=== PATIENT | male | born 1940 | race Asian ===

== ENCOUNTER 2018-01-15 17:33 | Inpatient (IN) | payer MEDICARE, MEDICAID ==
[~2018-01-15] VITALS: Ht 165.1 cm; Wt 52.2 kg
[2018-01-15 17:35] VITALS: BP 124/74
[2018-01-15] MEDS ORDERED: dilTIAZem HCl 50mg/10ml Inj IVP ONE (17:43)
[2018-01-15] MEDS ORDERED: dilTIAZem HCl 25mg/5ml Inj IVP ONE ×2 (17:45→19:45)
--- NOTE | 2018-01-15 18:07 | Diagnostic Imaging Report ---
EXAM: XR Chest, 1 View CLINICAL HISTORY: SOB TECHNIQUE: Frontal view of the chest. COMPARISON: No relevant prior studies available. FINDINGS: Lungs: See below. Pleural space: Blunting of the costophrenic angles with mild increased hazy opacities at the lung bases suggestive of bilateral pleural effusions versus pleural thickening with mild adjacent atelectasis versus infiltrate. No pneumothorax. Heart: Prominence of the cardiac silhouette. Mediastinum: Unremarkable. Bones/joints: Degenerative changes of the acromioclavicular joints. Degenerative changes of the thoracolumbar spine. IMPRESSION: 1. Prominence of the cardiac silhouette. 2. Blunting of the costophrenic angles with mild increased hazy opacities at the lung bases suggestive of bilateral pleural effusions versus pleural thickening with mild adjacent atelectasis versus infiltrate.
[2018-01-15] MEDS ORDERED: TAMSULOSIN HCL0.4 MG ORAL (18:23)
[2018-01-15] MEDS ORDERED: COZAAR25 MG ORAL (18:23)
[2018-01-15] MEDS ORDERED: METOPROLOL SUCC25 MG ORAL (18:23)
[2018-01-15 18:25] LABS: BASOPHILS % (AUTO) 1.1 % (0.0-2.0); EOSINOPHILS % (AUTO) 4.6 % (0.0-3.0); HEMATOCRIT 37.4 % (42.0-52.0); HEMOGLOBIN 12.7 G/DL (14.2-18.0); LYMPHOCYTES % (AUTO) 17.3 % (20.0-45.0); MEAN CORPUSCULAR VOLUME 89 FL (80-99); MONOCYTES % (AUTO) 12.3 % (1.0-10.0); NEUTROPHILS % (AUTO) 64.6 % (45.0-75.0); PLATELET COUNT 138 K/UL (150-450); RED BLOOD COUNT 4.18 M/UL (4.70-6.10); RED CELL DISTRIBUTION WIDTH 12.3 % (11.6-14.8); WHITE BLOOD COUNT 6.8 K/UL (4.8-10.8)
[2018-01-15 18:29] LABS: ANION GAP 11 mmol/L (5-15); BLOOD UREA NITROGEN 28 mg/dL (7-18); CALCIUM 8.8 MG/DL (8.5-10.1); CARBON DIOXIDE 23 MMOL/L (21-32); CHLORIDE 105 MMOL/L (98-107); CREATININE 1.4 MG/DL (0.55-1.30); POTASSIUM 4.1 MMOL/L (3.5-5.1); SODIUM 139 MMOL/L (136-145)
[2018-01-15 18:45] LABS: ALANINE AMINOTRANSFERASE 35 U/L (12-78); ALBUMIN 3.4 G/DL (3.4-5.0); ALKALINE PHOSPHATASE 68 U/L (46-116); ASPARTATE AMINO TRANSFERASE 33 U/L (15-37); BILIRUBIN,TOTAL 0.5 MG/DL (0.2-1.0); CKMB 3.2 NG/ML (0.0-3.6); CREATINE KINASE 132 U/L (26-308)
[2018-01-15 19:35] VITALS: BP 110/86
[2018-01-15 20:39] LABS: APPEARANCE,URINE CLEAR; BILIRUBIN, URINE NEGATIVE (NEGATIVE); GLUCOSE, URINE (UA) NEGATIVE (NEGATIVE); KETONES,URINE 1+ (NEGATIVE); LEUKOCYTE ESTERASE ,URINE 1+ (NEGATIVE); NITRITE,URINE NEGATIVE (NEGATIVE); PH,URINE 5 (4.5-8.0); PROTEIN,URINE 1+ (NEGATIVE); UROBILINOGEN,URINE NORMAL MG/DL (0.0-1.0)
[2018-01-15 20:44] LABS: COLOR,URINE YELLOW
[2018-01-15] MEDS ORDERED: Enoxaparin 40mg Inj SUBQ SCH (20:45)
[2018-01-15 21:42] VITALS: BP 110/78
[2018-01-15 22:21] VITALS: BP 107/64
--- NOTE | 2018-01-15 23:54 | Emergency Room Report ---
History of Present Illness General Chief Complaint: Dyspnea/Respdistress Source: Patient Present Illness HPI Patient is a 77-year-old male brought in by EMS after increased shortness of breath. Patient was noted to have a rapid atrial fibrillation by EMS. Patient did not have known prior history of atrial fibrillation. The patient noted have increased shortness of breath. The patient prior history of hypertension. He had not been having any vomiting or diarrhea. He reports having some chest discomfort. Allergies: Coded Allergies: No Known Allergies (Unverified , 01/15/18) Patient History Past Medical History: see triage record Reviewed Nursing Documentation: PMH: Agreed; PSxH: Agreed Nursing Documentation-PMH Past Medical History: No History, Except For Hx Cardiac Problems: Yes Hx Hypertension: Yes Review of Systems All Other Systems: negative except mentioned in HPI Physical Exam Vital Signs Date Time Temp Pulse Resp B/P (MAP) Pulse Ox O2 Delivery O2 Flow Rate FiO2 01/15/18 17:26 98.8 116 18 123/74 99 Room Air 98.8 01/15/18 19:35 3.0 Sp02 EP Interpretation: reviewed, normal General Appearance: normal inspection, alert Head: atraumatic ENT: normal ENT inspection, hearing grossly normal, normal voice Neck: normal inspection, full range of motion, supple, no bony tend Respiratory: normal inspection, no respiratory distress, no retraction Cardiovascular #1: no edema, tachycardia Gastrointestinal: normal inspection, normal bowel sounds, non tender, soft, no guarding, no hernia Genitourinary: no CVA tenderness Musculoskeletal: normal inspection, back normal, normal range of motion Neurologic: normal inspection, alert, responsive, speech normal Psychiatric: normal inspection, judgement/insight normal, mood/affect normal Skin: normal color, no rash, other - excoriations Medical Decision Making Diagnostic Impression: Primary Impression: Dyspnea Additional Impression: Atrial fibrillation ER Course Patient presented for shortness of breath.Differential included but was not limited to anemia, pneumonia, pneumothorax, myocardial infarction, pericardial effusion, congestive heart failure, acidosis. Because of complexity of patient' s case laboratory testing and imaging studies were ordered.the patient was given IV Cardizem for rate. Patient was discussed with Dr. Matt Ibanez for panel physician. Labs Test 01/15/18 17:30 01/15/18 19:40 01/15/18 23:26 White Blood Count 6.8 K/UL (4.8-10.8) Red Blood Count 4.18 M/UL (4.70-6.10) Hemoglobin 12.7 G/DL (14.2-18.0) Hematocrit 37.4 % (42.0-52.0) Mean Corpuscular Volume 89 FL (80-99) Mean Corpuscular Hemoglobin 30.4 PG (27.0-31.0) Mean Corpuscular Hemoglobin Concent 34.0 G/DL (32.0-36.0) Red Cell Distribution Width 12.3 % (11.6-14.8) Platelet Count 138 K/UL (150-450) Mean Platelet Volume 8.9 FL (6.5-10.1) Neutrophils (%) (Auto) 64.6 % (45.0-75.0) Lymphocytes (%) (Auto) 17.3 % (20.0-45.0) Monocytes (%) (Auto) 12.3 % (1.0-10.0) Eosinophils (%) (Auto) 4.6 % (0.0-3.0) Basophils (%) (Auto) 1.1 % (0.0-2.0) Prothrombin Time 10.7 SEC (9.30-11.50) Prothromb Time International Ratio 1.0 (0.9-1.1) Activated Partial Thromboplast Time 27 SEC (23-33) D-Dimer 0.44 mg/L FEU (0.00-0.49) Sodium Level 139 MMOL/L (136-145) Potassium Level 4.1 MMOL/L (3.5-5.1) Chloride Level 105 MMOL/L (98-107) Carbon Dioxide Level 23 MMOL/L (21-32) Anion Gap 11 mmol/L (5-15) Blood Urea Nitrogen 28 mg/dL (7-18) Creatinine 1.4 MG/DL (0.55-1.30) Estimat Glomerular Filtration Rate mL/min (>60) Glucose Level 144 MG/DL (74-106) Calcium Level 8.8 MG/DL (8.5-10.1) Total Bilirubin 0.5 MG/DL (0.2-1.0) Aspartate Amino Transf (AST/SGOT) 33 U/L (15-37) Alanine Aminotransferase (ALT/SGPT) 35 U/L (12-78) Alkaline Phosphatase 68 U/L (46-116) Total Creatine Kinase 132 U/L (26-308) Creatine Kinase MB 3.2 NG/ML (0.0-3.6) Creatine Kinase MB Relative Index 2.4 Pro-B-Type Natriuretic Peptide 6276 pg/mL (0-125) Total Protein 6.7 G/DL (6.4-8.2) Albumin 3.4 G/DL (3.4-5.0) Globulin 3.3 g/dL Albumin/Globulin Ratio 1.0 (1.0-2.7) Urine Color Yellow Urine Appearance Clear Urine pH 5 (4.5-8.0) Urine Specific [place] 1.025 (1.005-1.035) Urine Protein 1+ (NEGATIVE) Urine Glucose (UA) Negative (NEGATIVE) Urine Ketones 1+ (NEGATIVE) Urine Blood 1+ (NEGATIVE) Urine Nitrite Negative (NEGATIVE) Urine Bilirubin Negative (NEGATIVE) Urine Urobilinogen Normal MG/DL (0.0-1.0) Urine Leukocyte Esterase 1+ (NEGATIVE) Urine RBC 2-4 /HPF (0 - 0) Urine WBC 2-4 /HPF (0 - 0) Urine Squamous Epithelial Cells None /LPF (NONE/OCC) Urine Amorphous Sediment Few /LPF (NONE) Urine Bacteria Few /HPF (NONE) EKG Diagnostic Results Rate: tachycardiac Rhythm: other - afib Rhythm Strip Diag. Results EP Interpretation: yes Rhythm: no PVC's, no ectopy Last Vital Signs Date Time Temp Pulse Resp B/P (MAP) Pulse Ox O2 Delivery O2 Flow Rate FiO2 01/15/18 22:00 Nasal Cannula 2.0 01/15/18 21:42 100 24 110/78 99 01/15/18 21:40 98.7 98.7 Status: unchanged Disposition: ADMITTED INPATIENT Condition: Serious Referrals: NON PHYSICIAN (PCP) Jarod Perez MD Jan 15, 2018 23:54
[2018-01-16] MEDS ORDERED: ASPIRIN-LOW81 MG ORAL (03:46)
[2018-01-16] MEDS ORDERED: FENOFIBRATE40 MG PO (03:46)
[2018-01-16] MEDS ORDERED: PROSCAR5 MG ORAL (03:46)
[2018-01-16 04:00] VITALS: BP 115/74
[2018-01-16 04:40] LABS: BASOPHILS % (AUTO) 1.1 % (0.0-2.0); EOSINOPHILS % (AUTO) 7.7 % (0.0-3.0); HEMATOCRIT 35.2 % (42.0-52.0); HEMOGLOBIN 11.8 G/DL (14.2-18.0); LYMPHOCYTES % (AUTO) 23.2 % (20.0-45.0); MEAN CORPUSCULAR VOLUME 88 FL (80-99); MONOCYTES % (AUTO) 14.7 % (1.0-10.0); NEUTROPHILS % (AUTO) 53.3 % (45.0-75.0); PLATELET COUNT 140 K/UL (150-450); RED CELL DISTRIBUTION WIDTH 12.3 % (11.6-14.8); WHITE BLOOD COUNT 5.7 K/UL (4.8-10.8)
--- NOTE | 2018-01-16 04:45 | History and Physical Report ---
DATE OF ADMISSION: 01/15/2018 REASON FOR ADMISSION: 1. Shortness of breath. 2. New-onset atrial fibrillation. HISTORY OF PRESENT ILLNESS: The patient is a 77-year-old gentleman, who presented to emergency room for further evaluation and care of shortness of breath and not feeling well over the past 3 days. In the emergency room, the patient was noted to be in atrial fibrillation with rapid ventricular rate, new onset. The patient had not experienced this in the past along with elevated creatinine of 1.4. The patient says his only other medical condition prior to this was hypertension. No current chest pain, nausea, vomiting, and/or diarrhea. ALLERGIES: No known drug allergies. PAST MEDICAL HISTORY: 1. BPH. 2. Hypertension. SOCIAL HISTORY: The patient denies any current tobacco, alcohol, or illicit drug use. PAST SURGICAL HISTORY: Noncontributory. LABORATORY DATA: Dated 01/15/2018, sodium 139, potassium 4.1, BUN 28, creatinine 1.4, and calcium 8.8. LFTs within normal range. Troponin 0.204. Hemoglobin 12.7, white cell count 6.8, and platelet count 138,000. PHYSICAL EXAMINATION: VITAL SIGNS: Blood pressure 117/64, heart rate 114, respiratory rate 28, and temperature 98.7 degrees. GENERAL: The patient is awake, alert, not otherwise in distress. HEENT: Extraocular muscles intact. No lymphadenopathy noted. CARDIOVASCULAR: S1 and S2. Irregularly irregular. Tachycardic. PULMONARY: Clear to auscultation bilaterally. No rales, rhonchi, or wheezes. ABDOMEN: Nondistended and nontender with good bowel sounds. EXTREMITIES: No edema noted. ASSESSMENT AND PLAN: 1. Atrial fibrillation with rapid ventricular rate. New onset in nature. Positive with underlying shortness of breath. Both Cardiology and Pulmonary have been consulted for evaluation and management tonight for anticoagulation. Lasix therapy p.r.n. to assist with shortness of breath. However, at this time, rapid ventricular rate most likely underlying cause of his shortness of breath. New-onset atrial fibrillation. Etiology will be deferred to Cardiology. His heart rate has been much improved post Cardizem. We will defer further management to Dr. Ayoub of Cardiology. 2. Hypertension. Stable. We will continue metoprolol succinate along with losartan. 3. Acute versus chronic kidney disease. Creatinine 1.4. Most likely secondary to component of cardiorenal due to new-onset AFib with RVR. At this time, monitor carefully and recheck a.m. labs. 4. DVT prophylaxis. This is new-onset atrial fibrillation, which will require anticoagulation. We will defer full anticoagulation and management per Cardiology. Matt Ibanez MD DR: KAROLINE JOB#: [id number] CC:
[2018-01-16 04:46] LABS: ANION GAP 8 mmol/L (5-15); BLOOD UREA NITROGEN 25 mg/dL (7-18); CALCIUM 8.5 MG/DL (8.5-10.1); CARBON DIOXIDE 26 MMOL/L (21-32); CHLORIDE 107 MMOL/L (98-107); CREATININE 1.4 MG/DL (0.55-1.30); POTASSIUM 3.5 MMOL/L (3.5-5.1); SODIUM 141 MMOL/L (136-145)
--- NOTE | 2018-01-16 07:49 | Nephrology Progress Note ---
Assessment/Plan Assessment/Plan A/P 1) AFib with RVR- s/p cardizem bolus - on Lopressor now - in NSR - cardiology to decide on anticoagulation 2) NSTEMI- elevated trop I - with new onset AFib - per cardiology 3) SOB- resolved as heart rate within normal limits 4) HTN- lopressor and losartan 5) JOSLYN vs CKD- Cr 1.4 - stable. Renal US pending Subjective Date patient seen: Jan 16, 2018 Time patient seen: 07:45 ROS Limited/Unobtainable: No Allergies: Coded Allergies: No Known Allergies (Unverified , 01/15/18) All Systems: reviewed and negative except above Subjective Patient breathing better. Now in NSR Objective Last 24 Hour Vital Signs Date Time Temp Pulse Resp B/P (MAP) Pulse Ox O2 Delivery O2 Flow Rate FiO2 01/16/18 04:00 97.8 89 20 115/74 (88) 100 97.8 89 01/16/18 04:00 Nasal Cannula 2.0 01/16/18 04:00 80 01/16/18 00:50 83 01/16/18 00:00 Nasal Cannula 2.0 01/15/18 22:21 97.8 111 20 107/64 (78) 100 97.8 111 01/15/18 22:21 111 01/15/18 22:00 Nasal Cannula 2.0 01/15/18 21:42 100 24 110/78 99 Nasal Cannula 3.0 01/15/18 21:40 98.7 104 28 117/64 99 Nasal Cannula 3.0 98.7 01/15/18 19:54 114 117/64 01/15/18 19:35 98.7 104 28 110/86 99 Nasal Cannula 3.0 98.7 01/15/18 17:44 156 119/60 01/15/18 17:35 98.8 73 18 124/74 99 Room Air 98.8 01/15/18 17:35 154 20 Room Air 01/15/18 17:26 98.8 116 18 123/74 99 Room Air 98.8 Intake and Output 01/15/18 01/16/18 19:00 07:00 Intake Total 300 ml Balance 300 ml Intake Oral 300 ml # Voids 1 Laboratory Tests 01/15/18 17:30: White Blood Count 6.8, Red Blood Count 4.18L, Hemoglobin 12.7L, Hematocrit 37.4L , Mean Corpuscular Volume 89, Mean Corpuscular Hemoglobin 30.4, Mean Corpuscular Hemoglobin Concent 34.0, Red Cell Distribution Width 12.3, Platelet Count 138L, Mean Platelet Volume 8.9, Neutrophils (%) (Auto) 64.6, Lymphocytes ( %) (Auto) 17.3L, Monocytes (%) (Auto) 12.3H, Eosinophils (%) (Auto) 4.6H, Basophils (%) (Auto) 1.1, Prothrombin Time 10.7, Prothromb Time International Ratio 1.0, Activated Partial Thromboplast Time 27, D-Dimer 0.44, Sodium Level 139, Potassium Level 4.1, Chloride Level 105, Carbon Dioxide Level 23, Anion Gap 11, Blood Urea Nitrogen 28H, Creatinine 1.4H, Estimat Glomerular Filtration Rate , Glucose Level 144H, Calcium Level 8.8, Total Bilirubin 0.5, Aspartate Amino Transf (AST/SGOT) 33, Alanine Aminotransferase (ALT/SGPT) 35, Alkaline Phosphatase 68, Total Creatine Kinase 132, Creatine Kinase MB 3.2, Creatine Kinase MB Relative Index 2.4, Troponin I 0.204H, Pro-B-Type Natriuretic Peptide 6276H, Total Protein 6.7, Albumin 3.4, Globulin 3.3, Albumin/Globulin Ratio 1.0 01/15/18 19:40: Urine Color Yellow, Urine Appearance Clear, Urine pH 5, Urine Specific [place] 1.025, Urine Protein 1+H, Urine Glucose (UA) Negative, Urine Ketones 1+H, Urine Blood 1+H, Urine Nitrite Negative, Urine Bilirubin Negative, Urine Urobilinogen Normal, Urine Leukocyte Esterase 1+H, Urine RBC 2-4H, Urine WBC 2-4, Urine Squamous Epithelial Cells None, Urine Amorphous Sediment FewH, Urine Bacteria Few 01/15/18 23:26: Troponin I 0.235H 01/16/18 03:45: White Blood Count 5.7, Red Blood Count 4.00L, Hemoglobin 11.8L, Hematocrit 35.2L , Mean Corpuscular Volume 88, Mean Corpuscular Hemoglobin 29.6, Mean Corpuscular Hemoglobin Concent 33.7, Red Cell Distribution Width 12.3, Platelet Count 140L, Mean Platelet Volume 9.5, Neutrophils (%) (Auto) 53.3, Lymphocytes ( %) (Auto) 23.2, Monocytes (%) (Auto) 14.7H, Eosinophils (%) (Auto) 7.7H, Basophils (%) (Auto) 1.1, Sodium Level 141, Potassium Level 3.5, Chloride Level 107, Carbon Dioxide Level 26, Anion Gap 8, Blood Urea Nitrogen 25H, Creatinine 1.4H, Estimat Glomerular Filtration Rate , Glucose Level 107H, Calcium Level 8.5 Height (Feet): 5 Height (Inches): 5.00 Weight (Pounds): 127 General Appearance: no apparent distress, alert EENT: normal ENT inspection Neck: normal alignment, supple Cardiovascular: normal rate, regular rhythm Respiratory/Chest: lungs clear, normal breath sounds Abdomen: non tender, soft Edema: no edema noted Arm (L), no edema noted Arm (R), no edema noted Leg (L), no edema noted Leg (R), no edema noted Pedal (L), no edema noted Pedal (R), no edema noted Generalized Matt Ibanez MD Jan 16, 2018 07:49
[2018-01-16 08:00] VITALS: BP 118/80
[2018-01-16] MEDS ORDERED: Heparin 5000 units/ml inj IV SCH (08:30)
[2018-01-16] MEDS ORDERED: Heparin 25,000u/D5W 500ml 500 ML IV SCH (08:30)
[2018-01-16 08:49] LABS: BASOPHILS % (AUTO) 0.9 % (0.0-2.0); EOSINOPHILS % (AUTO) 6.7 % (0.0-3.0); HEMOGLOBIN 12.7 G/DL (14.2-18.0); LYMPHOCYTES % (AUTO) 18.1 % (20.0-45.0); MEAN CORPUSCULAR VOLUME 87 FL (80-99); MONOCYTES % (AUTO) 12.5 % (1.0-10.0); NEUTROPHILS % (AUTO) 61.8 % (45.0-75.0); PLATELET COUNT 149 K/UL (150-450); RED BLOOD COUNT 4.46 M/UL (4.70-6.10); RED CELL DISTRIBUTION WIDTH 12.3 % (11.6-14.8); WHITE BLOOD COUNT 6.1 K/UL (4.8-10.8)
[2018-01-16] MEDS: Aspirin Baby 81mg ORAL SCH (09:21)
[2018-01-16] MEDS: Losartan 25mg tab ORAL SCH (09:22)
[2018-01-16] MEDS: Metoprolol Succinate XL 25mg tab ORAL SCH (09:23)
[2018-01-16 09:24] VITALS: BP 118/80
--- NOTE | 2018-01-16 09:48 | Consultation ---
History of Present Illness General Date patient seen: Jan 16, 2018 Time patient seen: 09:44 Chief Complaint: Dyspnea/Respdistress Present Illness Allergies: Coded Allergies: No Known Allergies (Unverified , 01/15/18) Medication History Scheduled Aspirin (Aspirin EC), 81 MG ORAL DAILY, (Reported) Fenofibrate (Fenofibrate), 48 MG PO DAILY, (Reported) Finasteride* (Proscar*), 5 MG ORAL DAILY, (Reported) Losartan Potassium* (Cozaar*), Unknown Dose ORAL DAILY, (Reported) Metoprolol Succinate* (Metoprolol Succinate*), Unknown Dose ORAL DAILY, ( Reported) Tamsulosin Hcl (Tamsulosin Hcl*), 0.4 MG ORAL BEDTIME, (Reported) Patient History Healthcare decision maker Resuscitation status Full Code Advanced Directive on File No Physical Exam General Appearance: no apparent distress, alert Lines, tubes and drains: peripheral HEENT: normocephalic, atraumatic Neck: non-tender, normal alignment Respiratory/Chest: chest wall non-tender, lungs clear, normal breath sounds Cardiovascular/Chest: normal peripheral pulses, normal rate, regular rhythm Abdomen: normal bowel sounds, non tender Genitourinary/Rectal: normal genital exam Extremities: normal range of motion, non-tender, normal inspection, no calf tenderness, normal capillary refill, non-pitting Neurologic: molding supervisor II-XII grossly normal, no motor/sensory deficits, alert, oriented x 3, responsive Last 24 Hour Vital Signs Date Time Temp Pulse Resp B/P (MAP) Pulse Ox O2 Delivery O2 Flow Rate FiO2 01/16/18 09:24 97.2 88 20 118/80 (93) 97 97.2 88 01/16/18 09:23 88 115/74 01/16/18 09:22 118/80 01/16/18 08:00 97.2 88 20 118/80 (93) 97 97.2 88 01/16/18 07:40 96 01/16/18 04:00 97.8 89 20 115/74 (88) 100 97.8 89 01/16/18 04:00 Nasal Cannula 2.0 01/16/18 04:00 80 01/16/18 00:50 83 01/16/18 00:00 Nasal Cannula 2.0 01/15/18 22:21 97.8 111 20 107/64 (78) 100 97.8 111 01/15/18 22:21 111 01/15/18 22:00 Nasal Cannula 2.0 01/15/18 21:42 100 24 110/78 99 Nasal Cannula 3.0 01/15/18 21:40 98.7 104 28 117/64 99 Nasal Cannula 3.0 98.7 01/15/18 19:54 114 117/64 01/15/18 19:35 98.7 104 28 110/86 99 Nasal Cannula 3.0 98.7 01/15/18 17:44 156 119/60 01/15/18 17:35 98.8 73 18 124/74 99 Room Air 98.8 01/15/18 17:35 154 20 Room Air 01/15/18 17:26 98.8 116 18 123/74 99 Room Air 98.8 Intake and Output 01/15/18 01/16/18 19:00 07:00 Intake Total 300 ml Balance 300 ml Intake Oral 300 ml # Voids 1 Laboratory Tests Test 01/15/18 17:30 01/15/18 19:40 01/15/18 23:26 01/16/18 03:45 White Blood Count 6.8 K/UL (4.8-10.8) 5.7 K/UL (4.8-10.8) Red Blood Count 4.18 M/UL (4.70-6.10) L 4.00 M/UL (4.70-6.10) L Hemoglobin 12.7 G/DL (14.2-18.0) L 11.8 G/DL (14.2-18.0) L Hematocrit 37.4 % (42.0-52.0) L 35.2 % (42.0-52.0) L Mean Corpuscular Volume 89 FL (80-99) 88 FL (80-99) Mean Corpuscular Hemoglobin 30.4 PG (27.0-31.0) 29.6 PG (27.0-31.0) Mean Corpuscular Hemoglobin Concent 34.0 G/DL (32.0-36.0) 33.7 G/DL (32.0-36.0) Red Cell Distribution Width 12.3 % (11.6-14.8) 12.3 % (11.6-14.8) Platelet Count 138 K/UL (150-450) L 140 K/UL (150-450) L Mean Platelet Volume 8.9 FL (6.5-10.1) 9.5 FL (6.5-10.1) Neutrophils (%) (Auto) 64.6 % (45.0-75.0) 53.3 % (45.0-75.0) Lymphocytes (%) (Auto) 17.3 % (20.0-45.0) L 23.2 % (20.0-45.0) Monocytes (%) (Auto) 12.3 % (1.0-10.0) H 14.7 % (1.0-10.0) H Eosinophils (%) (Auto) 4.6 % (0.0-3.0) H 7.7 % (0.0-3.0) H Basophils (%) (Auto) 1.1 % (0.0-2.0) 1.1 % (0.0-2.0) Prothrombin Time 10.7 SEC (9.30-11.50) Prothromb Time International Ratio 1.0 (0.9-1.1) Activated Partial Thromboplast Time 27 SEC (23-33) D-Dimer 0.44 mg/L FEU (0.00-0.49) Sodium Level 139 MMOL/L (136-145) 141 MMOL/L (136-145) Potassium Level 4.1 MMOL/L (3.5-5.1) 3.5 MMOL/L (3.5-5.1) Chloride Level 105 MMOL/L (98-107) 107 MMOL/L (98-107) Carbon Dioxide Level 23 MMOL/L (21-32) 26 MMOL/L (21-32) Anion Gap 11 mmol/L (5-15) 8 mmol/L (5-15) Blood Urea Nitrogen 28 mg/dL (7-18) H 25 mg/dL (7-18) H Creatinine 1.4 MG/DL (0.55-1.30) H 1.4 MG/DL (0.55-1.30) H Estimat Glomerular Filtration Rate mL/min (>60) mL/min (>60) Glucose Level 144 MG/DL (74-106) H 107 MG/DL (74-106) H Calcium Level 8.8 MG/DL (8.5-10.1) 8.5 MG/DL (8.5-10.1) Total Bilirubin 0.5 MG/DL (0.2-1.0) Aspartate Amino Transf (AST/SGOT) 33 U/L (15-37) Alanine Aminotransferase (ALT/SGPT) 35 U/L (12-78) Alkaline Phosphatase 68 U/L (46-116) Total Creatine Kinase 132 U/L (26-308) Creatine Kinase MB 3.2 NG/ML (0.0-3.6) Creatine Kinase MB Relative Index 2.4 Troponin I 0.204 ng/mL (0.000-0.056) 0.235 ng/mL (0.000-0.056) Pro-B-Type Natriuretic Peptide 6276 pg/mL (0-125) H Total Protein 6.7 G/DL (6.4-8.2) Albumin 3.4 G/DL (3.4-5.0) Globulin 3.3 g/dL Albumin/Globulin Ratio 1.0 (1.0-2.7) Urine Color Yellow Urine Appearance Clear Urine pH 5 (4.5-8.0) Urine Specific [place] 1.025 (1.005-1.035) Urine Protein 1+ (NEGATIVE) H Urine Glucose (UA) Negative (NEGATIVE) Urine Ketones 1+ (NEGATIVE) H Urine Blood 1+ (NEGATIVE) H Urine Nitrite Negative (NEGATIVE) Urine Bilirubin Negative (NEGATIVE) Urine Urobilinogen Normal MG/DL (0.0-1.0) Urine Leukocyte Esterase 1+ (NEGATIVE) H Urine RBC 2-4 /HPF (0 - 0) H Urine WBC 2-4 /HPF (0 - 0) Urine Squamous Epithelial Cells None /LPF (NONE/OCC) Urine Amorphous Sediment Few /LPF (NONE) H Urine Bacteria Few /HPF (NONE) Test 01/16/18 07:45 White Blood Count 6.1 K/UL (4.8-10.8) Red Blood Count 4.46 M/UL (4.70-6.10) L Hemoglobin 12.7 G/DL (14.2-18.0) L Hematocrit 39.0 % (42.0-52.0) L Mean Corpuscular Volume 87 FL (80-99) Mean Corpuscular Hemoglobin 28.5 PG (27.0-31.0) Mean Corpuscular Hemoglobin Concent 32.6 G/DL (32.0-36.0) Red Cell Distribution Width 12.3 % (11.6-14.8) Platelet Count 149 K/UL (150-450) L Mean Platelet Volume 9.4 FL (6.5-10.1) Neutrophils (%) (Auto) 61.8 % (45.0-75.0) Lymphocytes (%) (Auto) 18.1 % (20.0-45.0) L Monocytes (%) (Auto) 12.5 % (1.0-10.0) H Eosinophils (%) (Auto) 6.7 % (0.0-3.0) H Basophils (%) (Auto) 0.9 % (0.0-2.0) Activated Partial Thromboplast Time Pending Height (Feet): 5 Height (Inches): 5.00 Weight (Pounds): 127 Medications Current Medications Medications (Trade) Dose Ordered Sig/[place] Route PRN Reason Start Time Stop Time Status Last Admin Dose Admin Acetaminophen (Tylenol) 650 mg Q4H PRN ORAL Mild Pain (Pain Scale 1-3) 01/15/18 19:45 02/14/18 19:44 Aspirin (ASA) 81 mg DAILY ORAL 01/16/18 09:00 02/15/18 08:59 01/16/18 09:21 Dextrose (Dextrose 50%) 25 ml Q30M PRN IV Hypoglycemia 01/15/18 19:45 02/14/18 19:44 Dextrose (Dextrose 50%) 50 ml Q30M PRN IV Hypoglycemia 01/15/18 19:45 02/14/18 19:44 Famotidine (Pepcid) 40 mg DAILY ORAL 01/16/18 09:00 02/15/18 08:59 01/16/18 09:23 Losartan Potassium (Cozaar) 25 mg DAILY ORAL 01/16/18 09:00 02/15/18 08:59 01/16/18 09:22 Metoprolol Succinate (Toprol XL) 25 mg DAILY ORAL 01/16/18 09:00 02/15/18 08:59 01/16/18 09:23 Ondansetron HCl (Zofran) 4 mg Q6H PRN IVP Nausea & Vomiting 01/15/18 19:45 11/18/18 19:44 Rivaroxaban (Xarelto) 20 mg DAILY ORAL 01/16/18 09:30 02/15/18 09:29 UNV Assessment/Plan Status: stable Assessment/Plan Assessment: HTN HLD BPH AFIB JOSLYN NSTEMI Plan AFIB: now in NSR Xarelto 20 mg anticoagulation Continue lopressor NSTEMI: Demand ischemia? no chest pain, no EKG with ischemia Continue to trend until peak Stress test Thursday Echocardiogram this SOB: Resolved HTN: Continue lopressor and Losartan JOSLYN: Fluids Renal electrolytes Ultrasound Luis Ayoub MD Jan 16, 2018 09:48
--- NOTE | 2018-01-16 10:49 | Pulmonology Progress Note ---
Subjective Allergies: Coded Allergies: No Known Allergies (Unverified , 01/15/18) Objective Last 24 Hour Vital Signs Date Time Temp Pulse Resp B/P (MAP) Pulse Ox O2 Delivery O2 Flow Rate FiO2 01/16/18 09:24 97.2 88 20 118/80 (93) 97 97.2 88 01/16/18 09:23 88 115/74 01/16/18 09:22 118/80 01/16/18 08:00 Nasal Cannula 2.0 01/16/18 08:00 97.2 88 20 118/80 (93) 97 97.2 88 01/16/18 07:40 96 01/16/18 04:00 97.8 89 20 115/74 (88) 100 97.8 89 01/16/18 04:00 Nasal Cannula 2.0 01/16/18 04:00 80 01/16/18 00:50 83 01/16/18 00:00 Nasal Cannula 2.0 01/15/18 22:21 97.8 111 20 107/64 (78) 100 97.8 111 01/15/18 22:21 111 01/15/18 22:00 Nasal Cannula 2.0 01/15/18 21:42 100 24 110/78 99 Nasal Cannula 3.0 01/15/18 21:40 98.7 104 28 117/64 99 Nasal Cannula 3.0 98.7 01/15/18 19:54 114 117/64 01/15/18 19:35 98.7 104 28 110/86 99 Nasal Cannula 3.0 98.7 01/15/18 17:44 156 119/60 01/15/18 17:35 98.8 73 18 124/74 99 Room Air 98.8 01/15/18 17:35 154 20 Room Air 01/15/18 17:26 98.8 116 18 123/74 99 Room Air 98.8 Intake and Output 01/15/18 01/16/18 19:00 07:00 Intake Total 300 ml Balance 300 ml Intake Oral 300 ml # Voids 1 Laboratory Tests 01/15/18 17:30: White Blood Count 6.8, Red Blood Count 4.18L, Hemoglobin 12.7L, Hematocrit 37.4L , Mean Corpuscular Volume 89, Mean Corpuscular Hemoglobin 30.4, Mean Corpuscular Hemoglobin Concent 34.0, Red Cell Distribution Width 12.3, Platelet Count 138L, Mean Platelet Volume 8.9, Neutrophils (%) (Auto) 64.6, Lymphocytes ( %) (Auto) 17.3L, Monocytes (%) (Auto) 12.3H, Eosinophils (%) (Auto) 4.6H, Basophils (%) (Auto) 1.1, Prothrombin Time 10.7, Prothromb Time International Ratio 1.0, Activated Partial Thromboplast Time 27, D-Dimer 0.44, Sodium Level 139, Potassium Level 4.1, Chloride Level 105, Carbon Dioxide Level 23, Anion Gap 11, Blood Urea Nitrogen 28H, Creatinine 1.4H, Estimat Glomerular Filtration Rate , Glucose Level 144H, Calcium Level 8.8, Total Bilirubin 0.5, Aspartate Amino Transf (AST/SGOT) 33, Alanine Aminotransferase (ALT/SGPT) 35, Alkaline Phosphatase 68, Total Creatine Kinase 132, Creatine Kinase MB 3.2, Creatine Kinase MB Relative Index 2.4, Troponin I 0.204H, Pro-B-Type Natriuretic Peptide 6276H, Total Protein 6.7, Albumin 3.4, Globulin 3.3, Albumin/Globulin Ratio 1.0 01/15/18 19:40: Urine Color Yellow, Urine Appearance Clear, Urine pH 5, Urine Specific [place] 1.025, Urine Protein 1+H, Urine Glucose (UA) Negative, Urine Ketones 1+H, Urine Blood 1+H, Urine Nitrite Negative, Urine Bilirubin Negative, Urine Urobilinogen Normal, Urine Leukocyte Esterase 1+H, Urine RBC 2-4H, Urine WBC 2-4, Urine Squamous Epithelial Cells None, Urine Amorphous Sediment FewH, Urine Bacteria Few 01/15/18 23:26: Troponin I 0.235H 01/16/18 03:45: White Blood Count 5.7, Red Blood Count 4.00L, Hemoglobin 11.8L, Hematocrit 35.2L , Mean Corpuscular Volume 88, Mean Corpuscular Hemoglobin 29.6, Mean Corpuscular Hemoglobin Concent 33.7, Red Cell Distribution Width 12.3, Platelet Count 140L, Mean Platelet Volume 9.5, Neutrophils (%) (Auto) 53.3, Lymphocytes ( %) (Auto) 23.2, Monocytes (%) (Auto) 14.7H, Eosinophils (%) (Auto) 7.7H, Basophils (%) (Auto) 1.1, Sodium Level 141, Potassium Level 3.5, Chloride Level 107, Carbon Dioxide Level 26, Anion Gap 8, Blood Urea Nitrogen 25H, Creatinine 1.4H, Estimat Glomerular Filtration Rate , Glucose Level 107H, Calcium Level 8.5 01/16/18 07:45: White Blood Count 6.1, Red Blood Count 4.46L, Hemoglobin 12.7L, Hematocrit 39.0L , Mean Corpuscular Volume 87, Mean Corpuscular Hemoglobin 28.5, Mean Corpuscular Hemoglobin Concent 32.6, Red Cell Distribution Width 12.3, Platelet Count 149L, Mean Platelet Volume 9.4, Neutrophils (%) (Auto) 61.8, Lymphocytes ( %) (Auto) 18.1L, Monocytes (%) (Auto) 12.5H, Eosinophils (%) (Auto) 6.7H, Basophils (%) (Auto) 0.9, Activated Partial Thromboplast Time 27 Current Medications Medications (Trade) Dose Ordered Sig/[place] Route PRN Reason Start Time Stop Time Status Last Admin Dose Admin Acetaminophen (Tylenol) 650 mg Q4H PRN ORAL Mild Pain (Pain Scale 1-3) 01/15/18 19:45 02/14/18 19:44 Aspirin (ASA) 81 mg DAILY ORAL 01/16/18 09:00 02/15/18 08:59 01/16/18 09:21 Dextrose (Dextrose 50%) 25 ml Q30M PRN IV Hypoglycemia 01/15/18 19:45 02/14/18 19:44 Dextrose (Dextrose 50%) 50 ml Q30M PRN IV Hypoglycemia 01/15/18 19:45 02/14/18 19:44 Famotidine (Pepcid) 40 mg DAILY ORAL 01/16/18 09:00 02/15/18 08:59 01/16/18 09:23 Furosemide (Lasix) 20 mg ONCE ONCE IV 01/16/18 10:15 01/16/18 10:16 UNV Losartan Potassium (Cozaar) 25 mg DAILY ORAL 01/16/18 09:00 02/15/18 08:59 01/16/18 09:22 Metoprolol Succinate (Toprol XL) 25 mg DAILY ORAL 01/16/18 09:00 02/15/18 08:59 01/16/18 09:23 Ondansetron HCl (Zofran) 4 mg Q6H PRN IVP Nausea & Vomiting 01/15/18 19:45 02/14/18 19:44 Regadenoson (Lexiscan) 0.4 mg ONCE ONCE IV 01/16/18 10:00 01/16/18 10:01 UNV Rivaroxaban (Xarelto) 15 mg QPM ORAL 01/16/18 16:30 02/15/18 16:29 Giovanny Jean MD Jan 16, 2018 10:49
--- NOTE | 2018-01-16 10:49 | Consultation ---
Consult Note Consult Note 77-year-old gentleman, with noted shortness of breath over the past 3 days with associated sputum production. In the emergency room, the patient was noted to be in rapid atrial fibrillation and denies prior. The patient says his only other medical condition is hypertension. I was asked to evaluate and assist with respiratory issues. Patient family denies asthma or COPD denies chronic lung problems. no fevers or chills. patient has been weak overall care discussed in detail and chart reviewed ALLERGIES/MEDS: reviewed and reconciled PAST MEDICAL HISTORY: 1. BPH. 2. Hypertension. SOCIAL HISTORY: The patient denies any current tobacco, alcohol, or illicit drug use. retired. non-croatian speaking PAST SURGICAL HISTORY: Noncontributory. Labs Test 01/15/18 17:30 01/15/18 19:40 01/15/18 23:26 01/16/18 03:45 White Blood Count 6.8 K/UL (4.8-10.8) 5.7 K/UL (4.8-10.8) Red Blood Count 4.18 M/UL (4.70-6.10) 4.00 M/UL (4.70-6.10) Hemoglobin 12.7 G/DL (14.2-18.0) 11.8 G/DL (14.2-18.0) Hematocrit 37.4 % (42.0-52.0) 35.2 % (42.0-52.0) Mean Corpuscular Volume 89 FL (80-99) 88 FL (80-99) Mean Corpuscular Hemoglobin 30.4 PG (27.0-31.0) 29.6 PG (27.0-31.0) Mean Corpuscular Hemoglobin Concent 34.0 G/DL (32.0-36.0) 33.7 G/DL (32.0-36.0) Red Cell Distribution Width 12.3 % (11.6-14.8) 12.3 % (11.6-14.8) Platelet Count 138 K/UL (150-450) 140 K/UL (150-450) Mean Platelet Volume 8.9 FL (6.5-10.1) 9.5 FL (6.5-10.1) Neutrophils (%) (Auto) 64.6 % (45.0-75.0) 53.3 % (45.0-75.0) Lymphocytes (%) (Auto) 17.3 % (20.0-45.0) 23.2 % (20.0-45.0) Monocytes (%) (Auto) 12.3 % (1.0-10.0) 14.7 % (1.0-10.0) Eosinophils (%) (Auto) 4.6 % (0.0-3.0) 7.7 % (0.0-3.0) Basophils (%) (Auto) 1.1 % (0.0-2.0) 1.1 % (0.0-2.0) Prothrombin Time 10.7 SEC (9.30-11.50) Prothromb Time International Ratio 1.0 (0.9-1.1) Activated Partial Thromboplast Time 27 SEC (23-33) D-Dimer 0.44 mg/L FEU (0.00-0.49) Sodium Level 139 MMOL/L (136-145) 141 MMOL/L (136-145) Potassium Level 4.1 MMOL/L (3.5-5.1) 3.5 MMOL/L (3.5-5.1) Chloride Level 105 MMOL/L (98-107) 107 MMOL/L (98-107) Carbon Dioxide Level 23 MMOL/L (21-32) 26 MMOL/L (21-32) Anion Gap 11 mmol/L (5-15) 8 mmol/L (5-15) Blood Urea Nitrogen 28 mg/dL (7-18) 25 mg/dL (7-18) Creatinine 1.4 MG/DL (0.55-1.30) 1.4 MG/DL (0.55-1.30) Estimat Glomerular Filtration Rate mL/min (>60) mL/min (>60) Glucose Level 144 MG/DL (74-106) 107 MG/DL (74-106) Calcium Level 8.8 MG/DL (8.5-10.1) 8.5 MG/DL (8.5-10.1) Total Bilirubin 0.5 MG/DL (0.2-1.0) Aspartate Amino Transf (AST/SGOT) 33 U/L (15-37) Alanine Aminotransferase (ALT/SGPT) 35 U/L (12-78) Alkaline Phosphatase 68 U/L (46-116) Total Creatine Kinase 132 U/L (26-308) Creatine Kinase MB 3.2 NG/ML (0.0-3.6) Creatine Kinase MB Relative Index 2.4 Troponin I 0.204 ng/mL (0.000-0.056) 0.235 ng/mL (0.000-0.056) Pro-B-Type Natriuretic Peptide 6276 pg/mL (0-125) Total Protein 6.7 G/DL (6.4-8.2) Albumin 3.4 G/DL (3.4-5.0) Globulin 3.3 g/dL Albumin/Globulin Ratio 1.0 (1.0-2.7) Urine Color Yellow Urine Appearance Clear Urine pH 5 (4.5-8.0) Urine Specific [place] 1.025 (1.005-1.035) Urine Protein 1+ (NEGATIVE) Urine Glucose (UA) Negative (NEGATIVE) Urine Ketones 1+ (NEGATIVE) Urine Blood 1+ (NEGATIVE) Urine Nitrite Negative (NEGATIVE) Urine Bilirubin Negative (NEGATIVE) Urine Urobilinogen Normal MG/DL (0.0-1.0) Urine Leukocyte Esterase 1+ (NEGATIVE) Urine RBC 2-4 /HPF (0 - 0) Urine WBC 2-4 /HPF (0 - 0) Urine Squamous Epithelial Cells None /LPF (NONE/OCC) Urine Amorphous Sediment Few /LPF (NONE) Urine Bacteria Few /HPF (NONE) Test 01/16/18 07:45 White Blood Count 6.1 K/UL (4.8-10.8) Red Blood Count 4.46 M/UL (4.70-6.10) Hemoglobin 12.7 G/DL (14.2-18.0) Hematocrit 39.0 % (42.0-52.0) Mean Corpuscular Volume 87 FL (80-99) Mean Corpuscular Hemoglobin 28.5 PG (27.0-31.0) Mean Corpuscular Hemoglobin Concent 32.6 G/DL (32.0-36.0) Red Cell Distribution Width 12.3 % (11.6-14.8) Platelet Count 149 K/UL (150-450) Mean Platelet Volume 9.4 FL (6.5-10.1) Neutrophils (%) (Auto) 61.8 % (45.0-75.0) Lymphocytes (%) (Auto) 18.1 % (20.0-45.0) Monocytes (%) (Auto) 12.5 % (1.0-10.0) Eosinophils (%) (Auto) 6.7 % (0.0-3.0) Basophils (%) (Auto) 0.9 % (0.0-2.0) Activated Partial Thromboplast Time 27 SEC (23-33) PHYSICAL EXAMINATION: NAD: alert GENERAL: The patient is awake, alert, not otherwise in distress. HEENT: Extraocular muscles intact. Carotid 2+ without murmur CARDIOVASCULAR: S1 and S2. rate controlled; no MRG PULMONARY: Clear to auscultation bilaterally. No rales, rhonchi, or wheezes. ABDOMEN: Nondistended and nontender with good bowel sounds. no distention EXTREMITIES: No CCE NEURO: nonfocal overall IMPRESSION RAPID AFIB SHORTNESS OF BREATH PULMONARY EDEMA DOUBT PNEUMONIA MILD CONGESTION ?CARDIAC ASTHMA PLAN DVT prophylaxis rate control keep negative albuterol with caution monitor imaging agree with management orders reviewed impression, plan, and exam edited and reviewed in detail care discussed with Giovanny Penn MD Jan 16, 2018 10:49
[2018-01-16] MEDS ORDERED: Albuterol ud Inhalation HHN PRN (11:00)
[2018-01-16 12:00] VITALS: BP 140/85
--- NOTE | 2018-01-16 12:23 | Diagnostic Imaging Report ---
EXAM: US Retroperitoneal Complete, Renal CLINICAL HISTORY: RENAL-A TECHNIQUE: Real-time ultrasound of the retroperitoneum (complete) with image documentation. COMPARISON: No relevant prior studies available. FINDINGS: Right kidney: Right kidney measures 11.1 x 5.2 x 5.9 cm. 1.3 x 1.2 x 1.3 cm right renal cyst. No stones. No hydronephrosis. Left kidney: Punctate hyperdensity in the left kidney, likely a nonobstructive stone. Dilated tubular structure that may be a dilated left ureter. Fullness of the left renal pelvis. Left kidney measures 11. 1 x 6.0 cm. 5.5 x 8 mm anechoic cyst left renal cortex. Bladder: Moderate postvoid residual. No ureteral jets are seen in 3 minutes. Prevoid urinary bladder volume 208 cc, postvoid volume 106 cc. IMPRESSION: 1. Punctate hyperdensity in the left kidney, likely a nonobstructive stone. Small bilateral renal cysts. 2. Dilated tubular structure that may be a dilated left ureter. Fullness of the left renal pelvis. 3. Moderate postvoid residual. No ureteral jets are seen in 3 minutes.
[2018-01-16 16:00] VITALS: BP 112/64
[2018-01-16] MEDS: Xarelto 15mg tab ORAL SCH (16:52)
[2018-01-16 20:00] VITALS: BP 119/77
[2018-01-17] VITALS: BP 138/83
[2018-01-17 03:49] LABS: BASOPHILS % (AUTO) 0.9 % (0.0-2.0); EOSINOPHILS % (AUTO) 5.7 % (0.0-3.0); HEMATOCRIT 37.8 % (42.0-52.0); HEMOGLOBIN 12.8 G/DL (14.2-18.0); LYMPHOCYTES % (AUTO) 15.4 % (20.0-45.0); MEAN CORPUSCULAR VOLUME 87 FL (80-99); NEUTROPHILS % (AUTO) 66.9 % (45.0-75.0); PLATELET COUNT 150 K/UL (150-450); RED BLOOD COUNT 4.33 M/UL (4.70-6.10); RED CELL DISTRIBUTION WIDTH 12.1 % (11.6-14.8); WHITE BLOOD COUNT 8.1 K/UL (4.8-10.8)
[2018-01-17 04:00] VITALS: BP 121/72
[2018-01-17 04:23] LABS: ANION GAP 7 mmol/L (5-15); BLOOD UREA NITROGEN 26 mg/dL (7-18); CALCIUM 8.9 MG/DL (8.5-10.1); CARBON DIOXIDE 29 MMOL/L (21-32); CHLORIDE 105 MMOL/L (98-107); CREATININE 1.5 MG/DL (0.55-1.30); POTASSIUM 3.6 MMOL/L (3.5-5.1); SODIUM 141 MMOL/L (136-145)
[2018-01-17 08:00] VITALS: BP 129/84
[2018-01-17] MEDS: Metoprolol Succinate XL 25mg tab ORAL SCH (08:29)
[2018-01-17] MEDS: Aspirin Baby 81mg ORAL SCH (08:29)
[2018-01-17] MEDS: Losartan 25mg tab ORAL SCH (08:30)
--- NOTE | 2018-01-17 08:49 | Nephrology Progress Note ---
Assessment/Plan Assessment/Plan A/P 1) AFib with RVR- now in NSR - on Lopressor and Xarelto - Stress test Thursday - Echocardiogram EF 25% and Severe MR and Pulm HTN 2) NSTEMI- elevated trop I - with new onset AFib - per cardiology. Refer to #1 3) SOB- resolved 4) HTN- lopressor and losartan 5) CKD 3B- Cr 1.5 - stable. - Dilated tubular structure that may be a dilated left ureter. Fullness of the left renal pelvis. F/U post DC with Urology Subjective Date patient seen: Jan 17, 2018 Time patient seen: 08:43 ROS Limited/Unobtainable: Yes Allergies: Coded Allergies: No Known Allergies (Unverified , 01/15/18) Subjective Patient breathing better. Now in NSR in no overt distress Objective Last 24 Hour Vital Signs Date Time Temp Pulse Resp B/P (MAP) Pulse Ox O2 Delivery O2 Flow Rate FiO2 01/17/18 08:30 121/72 01/17/18 08:29 103 121/72 01/17/18 08:02 98 Nasal Cannula 2.0 28 01/17/18 08:02 Nasal Cannula 2.0 28 01/17/18 08:02 103 20 Nasal Cannula 2.0 28 01/17/18 04:00 Nasal Cannula 2.0 01/17/18 04:00 98.2 88 20 121/72 (88) 99 98.2 99 01/17/18 03:36 96 01/17/18 00:00 Nasal Cannula 2.0 01/17/18 00:00 97.4 102 20 138/83 (101) 99 97.4 98 01/16/18 23:34 96 01/16/18 20:00 Nasal Cannula 2.0 01/16/18 20:00 98.3 98 16 119/77 (91) 99 98.3 98 01/16/18 19:40 107 20 Nasal Cannula 2.0 28 01/16/18 19:40 97 Nasal Cannula 2.0 28 01/16/18 19:40 Nasal Cannula 2.0 28 01/16/18 19:36 96 01/16/18 16:19 Nasal Cannula 2.0 01/16/18 16:00 97.9 85 20 112/64 (80) 99 97.9 85 01/16/18 16:00 87 01/16/18 12:00 Nasal Cannula 2.0 01/16/18 12:00 97.3 106 20 140/85 (103) 97 97.3 88 01/16/18 11:44 105 01/16/18 09:24 97.2 88 20 118/80 (93) 97 97.2 88 01/16/18 09:23 88 115/74 01/16/18 09:22 118/80 Intake and Output 01/16/18 01/17/18 19:00 07:00 Intake Total 500 ml Balance 500 ml Intake Oral 500 ml # Voids 2 Laboratory Tests 01/16/18 11:50: Troponin I 0.231H 01/17/18 03:15: White Blood Count 8.1, Red Blood Count 4.33L, Hemoglobin 12.8L, Hematocrit 37.8L , Mean Corpuscular Volume 87, Mean Corpuscular Hemoglobin 29.7, Mean Corpuscular Hemoglobin Concent 34.0, Red Cell Distribution Width 12.1, Platelet Count 150, Mean Platelet Volume 8.6, Neutrophils (%) (Auto) 66.9, Lymphocytes (% ) (Auto) 15.4L, Monocytes (%) (Auto) 11.0H, Eosinophils (%) (Auto) 5.7H, Basophils (%) (Auto) 0.9, Sodium Level 141, Potassium Level 3.6, Chloride Level 105, Carbon Dioxide Level 29, Anion Gap 7, Blood Urea Nitrogen 26H, Creatinine 1.5H, Estimat Glomerular Filtration Rate , Glucose Level 111H, Calcium Level 8.9 Height (Feet): 5 Height (Inches): 5.00 Weight (Pounds): 127 General Appearance: no apparent distress, alert EENT: normal ENT inspection Neck: normal alignment, supple Cardiovascular: normal rate, regular rhythm Abdomen: non tender, soft Edema: no edema noted Arm (L), no edema noted Arm (R), no edema noted Leg (L), no edema noted Leg (R), no edema noted Pedal (L), no edema noted Pedal (R), no edema noted Generalized Matt Ibanez MD Jan 17, 2018 08:48
--- NOTE | 2018-01-17 10:33 | Cardiology Progress Note ---
Assessment/Plan Status: stable Assessment/Plan Assessment: HTN HLD BPH AFIB JOSLYN NSTEMI Plan AFIB: Lopressor 100 BID Xarelto 20 mg anticoagulation Start amiodarone 400 BID NSTEMI: Demand ischemia? no chest pain, no EKG with ischemia, troponin flat Continue to trend until peak Stress test Thursday Echocardiogram LVEF 25% with severe MR and Grade III filling pressures SOB: Resolved HTN: Continue lopressor and Losartan Add aldactone Systolic CHF: Ischemia evaluation Thursday Diuresis: Aldacone + lasix to reduce filling pressures and pulmonary pressures JOSLYN: Fluids Renal electrolytes Ultrasound prognosis guarded Subjective Cardiovascular: Reports: no symptoms Respiratory: Reports: no symptoms Gastrointestinal/Abdominal: Reports: no symptoms Genitourinary: Reports: no symptoms Subjective C/o SOB, troponin elevated but flat, in RVR rates 150, Echo LVEF 25% severe MR and grade III diastolic dysfunction Objective Last 24 Hour Vital Signs Date Time Temp Pulse Resp B/P (MAP) Pulse Ox O2 Delivery O2 Flow Rate FiO2 01/17/18 08:30 121/72 01/17/18 08:29 103 121/72 01/17/18 08:02 98 Nasal Cannula 2.0 28 01/17/18 08:02 Nasal Cannula 2.0 28 01/17/18 08:02 103 20 Nasal Cannula 2.0 28 01/17/18 08:00 97.3 83 22 129/84 (99) 98 97.3 01/17/18 04:00 Nasal Cannula 2.0 01/17/18 04:00 98.2 88 20 121/72 (88) 99 98.2 99 01/17/18 03:36 96 01/17/18 00:00 Nasal Cannula 2.0 01/17/18 00:00 97.4 102 20 138/83 (101) 99 97.4 98 01/16/18 23:34 96 01/16/18 20:00 Nasal Cannula 2.0 01/16/18 20:00 98.3 98 16 119/77 (91) 99 98.3 98 01/16/18 19:40 107 20 Nasal Cannula 2.0 28 01/16/18 19:40 97 Nasal Cannula 2.0 28 01/16/18 19:40 Nasal Cannula 2.0 28 01/16/18 19:36 96 01/16/18 16:19 Nasal Cannula 2.0 01/16/18 16:00 97.9 85 20 112/64 (80) 99 97.9 85 01/16/18 16:00 87 01/16/18 12:00 Nasal Cannula 2.0 01/16/18 12:00 97.3 106 20 140/85 (103) 97 97.3 88 01/16/18 11:44 105 General Appearance: mild distress EENT: PERRL/EOMI, normal ENT inspection, TMs normal, pharynx normal Neck: non-tender, normal alignment, supple, normal inspection, JVD Rhythm: Afib Cardiovascular: normal peripheral pulses, regularly irregular, tachycardia Respiratory/Chest: chest wall non-tender, lungs clear Abdomen: normal bowel sounds, non tender, soft Extremities: normal range of motion, non-tender, normal inspection Neurologic: clinical account executive II-XII grossly normal, no motor/sensory deficits Intake and Output 01/16/18 01/17/18 19:00 07:00 Intake Total 500 ml Balance 500 ml Intake Oral 500 ml # Voids 2 Laboratory Tests Test 01/16/18 11:50 01/17/18 03:15 Troponin I 0.231 ng/mL (0.000-0.056) White Blood Count 8.1 K/UL (4.8-10.8) Red Blood Count 4.33 M/UL (4.70-6.10) L Hemoglobin 12.8 G/DL (14.2-18.0) L Hematocrit 37.8 % (42.0-52.0) L Mean Corpuscular Volume 87 FL (80-99) Mean Corpuscular Hemoglobin 29.7 PG (27.0-31.0) Mean Corpuscular Hemoglobin Concent 34.0 G/DL (32.0-36.0) Red Cell Distribution Width 12.1 % (11.6-14.8) Platelet Count 150 K/UL (150-450) Mean Platelet Volume 8.6 FL (6.5-10.1) Neutrophils (%) (Auto) 66.9 % (45.0-75.0) Lymphocytes (%) (Auto) 15.4 % (20.0-45.0) L Monocytes (%) (Auto) 11.0 % (1.0-10.0) H Eosinophils (%) (Auto) 5.7 % (0.0-3.0) H Basophils (%) (Auto) 0.9 % (0.0-2.0) Sodium Level 141 MMOL/L (136-145) Potassium Level 3.6 MMOL/L (3.5-5.1) Chloride Level 105 MMOL/L (98-107) Carbon Dioxide Level 29 MMOL/L (21-32) Anion Gap 7 mmol/L (5-15) Blood Urea Nitrogen 26 mg/dL (7-18) H Creatinine 1.5 MG/DL (0.55-1.30) H Estimat Glomerular Filtration Rate mL/min (>60) Glucose Level 111 MG/DL (74-106) H Calcium Level 8.9 MG/DL (8.5-10.1) Microbiology Date/Time Source Procedure Growth Status 01/15/18 17:40 Blood Blood Culture - Preliminary NO GROWTH AFTER 24 HOURS Resulted 01/15/18 17:30 Blood Blood Culture - Preliminary NO GROWTH AFTER 24 HOURS Resulted Luis Ayoub MD Jan 17, 2018 10:33
--- NOTE | 2018-01-17 11:18 | Pulmonology Progress Note ---
Assessment/Plan Assessment/Plan IMPRESSION RAPID AFIB SHORTNESS OF BREATH PULMONARY EDEMA DOUBT PNEUMONIA MILD CONGESTION ?CARDIAC ASTHMA PLAN DVT prophylaxis rate control and monitor rhythm keep negative albuterol with caution if needed monitor imaging for change agree with management orders reviewed- CLIVE care impression, plan, and exam edited and reviewed in detail care discussed with RN Subjective Allergies: Coded Allergies: No Known Allergies (Unverified , 01/15/18) Subjective appear more comfortable no distress care reviewed Objective Last 24 Hour Vital Signs Date Time Temp Pulse Resp B/P (MAP) Pulse Ox O2 Delivery O2 Flow Rate FiO2 01/17/18 08:30 121/72 01/17/18 08:29 103 121/72 01/17/18 08:02 98 Nasal Cannula 2.0 28 01/17/18 08:02 Nasal Cannula 2.0 28 01/17/18 08:02 103 20 Nasal Cannula 2.0 28 01/17/18 08:00 97.3 83 22 129/84 (99) 98 97.3 01/17/18 08:00 137 01/17/18 08:00 Nasal Cannula 2.0 01/17/18 04:00 Nasal Cannula 2.0 01/17/18 04:00 98.2 88 20 121/72 (88) 99 98.2 99 01/17/18 03:36 96 01/17/18 00:00 Nasal Cannula 2.0 01/17/18 00:00 97.4 102 20 138/83 (101) 99 97.4 98 01/16/18 23:34 96 01/16/18 20:00 Nasal Cannula 2.0 01/16/18 20:00 98.3 98 16 119/77 (91) 99 98.3 98 01/16/18 19:40 107 20 Nasal Cannula 2.0 28 01/16/18 19:40 97 Nasal Cannula 2.0 28 01/16/18 19:40 Nasal Cannula 2.0 28 01/16/18 19:36 96 01/16/18 16:19 Nasal Cannula 2.0 01/16/18 16:00 97.9 85 20 112/64 (80) 99 97.9 85 01/16/18 16:00 87 01/16/18 12:00 Nasal Cannula 2.0 01/16/18 12:00 97.3 106 20 140/85 (103) 97 97.3 88 01/16/18 11:44 105 Intake and Output 01/16/18 01/17/18 19:00 07:00 Intake Total 500 ml Balance 500 ml Intake Oral 500 ml # Voids 2 Objective PHYSICAL EXAMINATION: NAD: alert GENERAL: The patient is awake, alert, not otherwise in distress. HEENT: EOMI Carotid 2+ without murmur CARDIOVASCULAR: S1 and S2. rate controlled; no MRG; irregular PULMONARY: Clear to auscultation bilaterally. No rales, rhonchi, or wheezes. ABDOMEN: Nondistended and nontender with good bowel sounds. no distention EXTREMITIES: No CCE NEURO: nonfocal overall Microbiology Date/Time Source Procedure Growth Status 01/15/18 17:40 Blood Blood Culture - Preliminary NO GROWTH AFTER 24 HOURS Resulted 01/15/18 17:30 Blood Blood Culture - Preliminary NO GROWTH AFTER 24 HOURS Resulted Laboratory Tests 01/16/18 11:50: Troponin I 0.231H 01/17/18 03:15: White Blood Count 8.1, Red Blood Count 4.33L, Hemoglobin 12.8L, Hematocrit 37.8L , Mean Corpuscular Volume 87, Mean Corpuscular Hemoglobin 29.7, Mean Corpuscular Hemoglobin Concent 34.0, Red Cell Distribution Width 12.1, Platelet Count 150, Mean Platelet Volume 8.6, Neutrophils (%) (Auto) 66.9, Lymphocytes (% ) (Auto) 15.4L, Monocytes (%) (Auto) 11.0H, Eosinophils (%) (Auto) 5.7H, Basophils (%) (Auto) 0.9, Sodium Level 141, Potassium Level 3.6, Chloride Level 105, Carbon Dioxide Level 29, Anion Gap 7, Blood Urea Nitrogen 26H, Creatinine 1.5H, Estimat Glomerular Filtration Rate , Glucose Level 111H, Calcium Level 8.9 Current Medications Medications (Trade) Dose Ordered Sig/[place] Route PRN Reason Start Time Stop Time Status Last Admin Dose Admin Acetaminophen (Tylenol) 650 mg Q4H PRN ORAL Mild Pain (Pain Scale 1-3) 01/15/18 19:45 02/14/18 19:44 Albuterol Sulfate (Proventil) 2.5 mg Q4H PRN HHN congestion 01/16/18 11:00 01/21/18 10:59 Amiodarone HCl (Cordarone) 400 mg EVERY 12 HOURS ORAL 01/17/18 21:00 02/16/18 20:59 Aspirin (ASA) 81 mg DAILY ORAL 01/16/18 09:00 02/15/18 08:59 01/17/18 08:29 Dextrose (Dextrose 50%) 25 ml Q30M PRN IV Hypoglycemia 01/15/18 19:45 02/14/18 19:44 Dextrose (Dextrose 50%) 50 ml Q30M PRN IV Hypoglycemia 01/15/18 19:45 02/14/18 19:44 Famotidine (Pepcid) 40 mg DAILY ORAL 01/16/18 09:00 02/15/18 08:59 01/17/18 08:29 Furosemide (Lasix) 20 mg EVERY 12 HOURS ORAL 01/17/18 21:00 02/16/18 20:59 Losartan Potassium (Cozaar) 25 mg DAILY ORAL 01/16/18 09:00 02/15/18 08:59 01/17/18 08:30 Metoprolol Succinate (Toprol XL) 100 mg DAILY ORAL 01/18/18 09:00 02/15/18 08:59 Ondansetron HCl (Zofran) 4 mg Q6H PRN IVP Nausea & Vomiting 01/15/18 19:45 02/14/18 19:44 Potassium Chloride (K-Dur) 40 meq ONCE ORAL 01/17/18 11:00 01/17/18 12:00 Regadenoson (Lexiscan) 0.4 mg ONCE IV 01/18/18 06:00 01/18/18 18:00 Rivaroxaban (Xarelto) 15 mg QPM ORAL 01/16/18 16:30 02/15/18 16:29 01/16/18 16:52 Spironolactone (Aldactone) 25 mg DAILY ORAL 01/18/18 09:00 02/17/18 08:59 Giovanny Jean MD Jan 17, 2018 11:18
[2018-01-17 12:25] VITALS: BP 118/79
[2018-01-17] MEDS: Amiodarone 200mg tab ORAL SCH ×3 (13:25→20:54)
[2018-01-17 15:49] VITALS: BP 107/73
[2018-01-17] MEDS: Xarelto 15mg tab ORAL SCH (17:06)
[2018-01-17 20:00] VITALS: BP 107/65
[2018-01-17] MEDS ORDERED: Amiodarone 200mg tab ORAL SCH (21:00)
[2018-01-18] VITALS: BP 110/65
[2018-01-18 04:00] VITALS: BP 125/70
[2018-01-18 04:21] LABS: ANION GAP 6 mmol/L (5-15); BLOOD UREA NITROGEN 25 mg/dL (7-18); CALCIUM 8.8 MG/DL (8.5-10.1); CARBON DIOXIDE 27 MMOL/L (21-32); CHLORIDE 102 MMOL/L (98-107); CREATININE 1.5 MG/DL (0.55-1.30); POTASSIUM 3.9 MMOL/L (3.5-5.1); SODIUM 135 MMOL/L (136-145)
[2018-01-18] MEDS ORDERED: Lexiscan 0.4mg/5ml syringe IV SCH (06:00)
--- NOTE | 2018-01-18 07:56 | Nephrology Progress Note ---
Assessment/Plan Assessment/Plan A/P 1) AFib with RVR- now in NSR - on Lopressor/ Xarelto/Amiodarone - Stress test today and DC afterwards if appropriate - Echocardiogram EF 25% and Severe MR and Pulm HTN 2) NSTEMI- elevated trop I - with new onset AFib - per cardiology. Refer to #1 3) SOB- resolved 4) HTN- lopressor and losartan 5) CKD 3B- Cr 1.5 stable - stable. - Dilated tubular structure that may be a dilated left ureter. Fullness of the left renal pelvis. F/U post DC with Urology DC today with post stress test if appropriate Subjective Date patient seen: Jan 18, 2018 Time patient seen: 07:54 ROS Limited/Unobtainable: No Allergies: Coded Allergies: No Known Allergies (Unverified , 01/15/18) Subjective Patient feels much better. Awaiting stress test today Objective Last 24 Hour Vital Signs Date Time Temp Pulse Resp B/P (MAP) Pulse Ox O2 Delivery O2 Flow Rate FiO2 01/18/18 06:55 Nasal Cannula 2.0 28 01/18/18 06:55 96 20 Nasal Cannula 2.0 28 01/18/18 06:55 97 Nasal Cannula 2.0 28 01/18/18 05:01 Nasal Cannula 2.0 28 01/18/18 05:00 98 Nasal Cannula 2.0 28 01/18/18 04:59 96 20 Nasal Cannula 2.0 28 01/18/18 04:00 Nasal Cannula 2.0 01/18/18 04:00 98.6 91 16 125/70 (88) 99 98.6 01/18/18 04:00 75 01/18/18 00:00 98.1 86 16 110/65 (80) 99 98.1 01/18/18 00:00 90 01/18/18 00:00 Nasal Cannula 2.0 01/17/18 20:00 Nasal Cannula 2.0 01/17/18 20:00 98.1 91 20 107/65 (79) 100 98.1 01/17/18 20:00 86 01/17/18 16:56 Nasal Cannula 2.0 01/17/18 16:00 96 01/17/18 15:49 98.5 97 20 107/73 (84) 100 98.5 01/17/18 13:07 147 01/17/18 12:25 Nasal Cannula 2.0 01/17/18 12:25 97.3 72 20 118/79 (92) 98 97.3 01/17/18 08:30 121/72 01/17/18 08:29 103 121/72 01/17/18 08:02 98 Nasal Cannula 2.0 28 01/17/18 08:02 Nasal Cannula 2.0 28 01/17/18 08:02 103 20 Nasal Cannula 2.0 28 01/17/18 08:00 97.3 83 22 129/84 (99) 98 97.3 01/17/18 08:00 137 01/17/18 08:00 Nasal Cannula 2.0 Intake and Output 01/17/18 01/18/18 19:00 07:00 Intake Total 600 ml 200 ml Output Total 1000 ml Balance 600 ml -800 ml Intake Oral 600 ml 200 ml Output Urine Total 1000 ml Laboratory Tests 01/18/18 03:52: Sodium Level 135L, Potassium Level 3.9, Chloride Level 102, Carbon Dioxide Level 27, Anion Gap 6, Blood Urea Nitrogen 25H, Creatinine 1.5H, Estimat Glomerular Filtration Rate , Glucose Level 110H, Calcium Level 8.8 Height (Feet): 5 Height (Inches): 5.00 Weight (Pounds): 127 General Appearance: no apparent distress, alert EENT: normal ENT inspection Neck: normal alignment, supple Cardiovascular: normal rate, regular rhythm Respiratory/Chest: lungs clear, normal breath sounds Abdomen: non tender, soft Edema: no edema noted Arm (L), no edema noted Arm (R), no edema noted Leg (L), no edema noted Leg (R), no edema noted Pedal (L), no edema noted Pedal (R), no edema noted Generalized Matt Ibanez MD Jan 18, 2018 07:56
--- NOTE | 2018-01-18 08:29 | Pulmonology Progress Note ---
Assessment/Plan Assessment/Plan IMPRESSION RAPID AFIB SHORTNESS OF BREATH PULMONARY EDEMA DOUBT PNEUMONIA MILD CONGESTION ?CARDIAC ASTHMA- resolved PLAN vitals improved keep negative albuterol with caution if needed- presently not needed monitor imaging for change agree with management agree with dc planning impression, plan, and exam edited and reviewed in detail care discussed with RN Subjective Allergies: Coded Allergies: No Known Allergies (Unverified , 01/15/18) Subjective appear comfortable no distress care reviewed alert and taking po Objective Last 24 Hour Vital Signs Date Time Temp Pulse Resp B/P (MAP) Pulse Ox O2 Delivery O2 Flow Rate FiO2 01/18/18 06:55 Nasal Cannula 2.0 28 01/18/18 06:55 96 20 Nasal Cannula 2.0 28 01/18/18 06:55 97 Nasal Cannula 2.0 28 01/18/18 05:01 Nasal Cannula 2.0 28 01/18/18 05:00 98 Nasal Cannula 2.0 28 01/18/18 04:59 96 20 Nasal Cannula 2.0 28 01/18/18 04:00 Nasal Cannula 2.0 01/18/18 04:00 98.6 91 16 125/70 (88) 99 98.6 01/18/18 04:00 75 01/18/18 00:00 98.1 86 16 110/65 (80) 99 98.1 01/18/18 00:00 90 01/18/18 00:00 Nasal Cannula 2.0 01/17/18 20:00 Nasal Cannula 2.0 01/17/18 20:00 98.1 91 20 107/65 (79) 100 98.1 01/17/18 20:00 86 01/17/18 16:56 Nasal Cannula 2.0 01/17/18 16:00 96 01/17/18 15:49 98.5 97 20 107/73 (84) 100 98.5 01/17/18 13:07 147 01/17/18 12:25 Nasal Cannula 2.0 01/17/18 12:25 97.3 72 20 118/79 (92) 98 97.3 01/17/18 08:30 121/72 01/17/18 08:29 103 121/72 Intake and Output 01/17/18 01/18/18 19:00 07:00 Intake Total 600 ml 200 ml Output Total 1000 ml Balance 600 ml -800 ml Intake Oral 600 ml 200 ml Output Urine Total 1000 ml Objective PHYSICAL EXAMINATION: NAD: alert and awake GENERAL: The patient is awake, alert, not otherwise in distress. HEENT: EOMI Carotid 2+ without murmur CARDIOVASCULAR: S1 and S2. rate controlled; no MRG; PULMONARY: Clear to auscultation bilaterally. No rales, rhonchi, or wheezes. ABDOMEN: Nondistended and nontender with good bowel sounds. no distention EXTREMITIES: No CCE NEURO: nonfocal overall and comfortable Microbiology Date/Time Source Procedure Growth Status 01/15/18 17:40 Blood Blood Culture - Preliminary NO GROWTH AFTER 48 HOURS Resulted 01/15/18 17:30 Blood Blood Culture - Preliminary NO GROWTH AFTER 48 HOURS Resulted Laboratory Tests 01/18/18 03:52: Sodium Level 135L, Potassium Level 3.9, Chloride Level 102, Carbon Dioxide Level 27, Anion Gap 6, Blood Urea Nitrogen 25H, Creatinine 1.5H, Estimat Glomerular Filtration Rate , Glucose Level 110H, Calcium Level 8.8 Current Medications Medications (Trade) Dose Ordered Sig/Tahmina Route PRN Reason Start Time Stop Time Status Last Admin Dose Admin Acetaminophen (Tylenol) 650 mg Q4H PRN ORAL Mild Pain (Pain Scale 1-3) 01/15/18 19:45 02/14/18 19:44 Albuterol Sulfate (Proventil) 2.5 mg Q4H PRN HHN congestion 01/16/18 11:00 01/21/18 10:59 Amiodarone HCl (Cordarone) 400 mg EVERY 12 HOURS ORAL 01/17/18 13:18 02/16/18 13:17 01/17/18 20:54 Aspirin (ASA) 81 mg DAILY ORAL 01/16/18 09:00 02/15/18 08:59 01/17/18 08:29 Dextrose (Dextrose 50%) 25 ml Q30M PRN IV Hypoglycemia 01/15/18 19:45 02/14/18 19:44 Dextrose (Dextrose 50%) 50 ml Q30M PRN IV Hypoglycemia 01/15/18 19:45 02/14/18 19:44 Famotidine (Pepcid) 40 mg DAILY ORAL 01/16/18 09:00 02/15/18 08:59 01/17/18 08:29 Furosemide (Lasix) 20 mg EVERY 12 HOURS ORAL 01/17/18 21:00 02/16/18 20:59 01/17/18 20:53 Losartan Potassium (Cozaar) 25 mg DAILY ORAL 01/16/18 09:00 02/15/18 08:59 01/17/18 08:30 Metoprolol Succinate (Toprol XL) 100 mg DAILY ORAL 01/18/18 09:00 02/15/18 08:59 Ondansetron HCl (Zofran) 4 mg Q6H PRN IVP Nausea & Vomiting 01/15/18 19:45 02/14/18 19:44 Regadenoson (Lexiscan) 0.4 mg ONCE IV 01/18/18 06:00 01/18/18 18:00 Rivaroxaban (Xarelto) 15 mg QPM ORAL 01/16/18 16:30 02/15/18 16:29 01/17/18 17:06 Spironolactone (Aldactone) 25 mg DAILY ORAL 01/18/18 09:00 02/17/18 08:59 Giovanny Jean MD Jan 18, 2018 08:29
[2018-01-18 08:59] VITALS: BP 120/68
[2018-01-18] MEDS ORDERED: Spironolactone 25mg tab ORAL SCH (09:00)
[2018-01-18] MEDS ORDERED: Metoprolol Succinate XL 100mg tab ORAL SCH (09:00)
[2018-01-18] MEDS: Aspirin Baby 81mg ORAL SCH (09:02)
[2018-01-18] MEDS: Losartan 25mg tab ORAL SCH (09:23)
[2018-01-18] MEDS: Amiodarone 200mg tab ORAL SCH ×2 (09:23→20:48)
[2018-01-18 11:58] VITALS: BP 117/73
[2018-01-18 16:00] VITALS: BP 123/70
--- NOTE | 2018-01-18 16:24 | Diagnostic Imaging Report ---
Indication: chest pain Technique: The study was conducted under the supervision of a social services manager. lexiscan (regadenoson) infusion over 10 seconds followed by intravenous administration of 31.8 mCi of technetium 99m Myoview was performed. Three plane SPECT imaging of the heart was then performed. A resting study was performed as part of the one-day protocol with 10.2 mCi of technetium 99m myoview injected intravenously at that time. Three plane SPECT imaging of the heart was obtained. Comparison: None Clinical data: 1. Clinical response: Non ischemic 2. Electrocardiographic response: Non ischemic Findings: The myocardial perfusion scan demonstrates large relatively fixed perfusion defect involving the lateral wall, large apical defect, large inferior wall defect. There is relative preservation of the anterior wall and the septum. Left ventricle is dilated. LVEF is estimated at 46%. IMPRESSION: No definite evidence of myocardial ischemia. Large fixed perfusion defects consistent myocardial infarct involving a large area of the left ventricular apex, the lateral wall, the inferior wall. Left ventricular dilatation. LVEF as estimated at 46% on this examination.
[2018-01-18] MEDS: Xarelto 15mg tab ORAL SCH (16:34)
[2018-01-18] MEDS ORDERED: Lexiscan 0.4mg/5ml syringe IV ONE (17:30)
[2018-01-18] MEDS ORDERED: Albuterol ud Inhalation HHN PRN (18:09)
[2018-01-18 20:00] VITALS: BP 126/77
--- NOTE | 2018-01-18 23:14 | Cardiology Progress Note ---
Assessment/Plan Status: stable Assessment/Plan Assessment: HTN HLD BPH AFIB JOSLYN NSTEMI Plan AFIB: Lopressor 100 BID Xarelto 20 mg anticoagulation Continue amiodarone 400 BID NSTEMI: Demand ischemia? no chest pain, no EKG with ischemia, troponin flat Continue to trend until peak Stress test negative for ischemia, hx of infarct Echocardiogram LVEF 25% with severe MR and Grade III filling pressures SOB: Resolved HTN: Continue lopressor and Losartan Add aldactone Systolic CHF: Ischemia evaluation Thursday Diuresis: Aldacone + lasix to reduce filling pressures and pulmonary pressures Check echo in three months Arrange life vest upon discharge May need ICD JOSLYN: Fluids Renal electrolytes Ultrasound prognosis guarded Subjective Cardiovascular: Reports: no symptoms Respiratory: Reports: no symptoms Gastrointestinal/Abdominal: Reports: no symptoms Genitourinary: Reports: no symptoms Subjective Transferred to floor, sons at bedside, on room air. Rates 90s, stress test negative for ischemia but hx of infarction. Currently no chest pain, tolerating PO Objective Last 24 Hour Vital Signs Date Time Temp Pulse Resp B/P (MAP) Pulse Ox O2 Delivery O2 Flow Rate FiO2 01/18/18 21:00 Room Air 01/18/18 20:00 99.2 88 20 126/77 (93) 94 99.2 01/18/18 19:54 Nasal Cannula 2.0 28 01/18/18 19:54 88 20 Nasal Cannula 2.0 28 01/18/18 19:54 96 Nasal Cannula 2.0 28 01/18/18 19:20 86 01/18/18 16:00 97.5 89 19 123/70 (87) 96 97.5 01/18/18 16:00 Room Air 01/18/18 15:19 95 01/18/18 12:00 89 01/18/18 12:00 Room Air 01/18/18 11:58 97.5 80 20 117/73 (88) 96 97.5 01/18/18 09:23 120/68 01/18/18 09:00 86 120/68 01/18/18 08:59 97.7 86 20 120/68 (85) 95 97.7 01/18/18 08:45 Room Air 01/18/18 08:00 87 01/18/18 06:55 Nasal Cannula 2.0 28 01/18/18 06:55 96 20 Nasal Cannula 2.0 28 01/18/18 06:55 97 Nasal Cannula 2.0 28 01/18/18 05:01 Nasal Cannula 2.0 28 01/18/18 05:00 98 Nasal Cannula 2.0 28 01/18/18 04:59 96 20 Nasal Cannula 2.0 28 01/18/18 04:00 Nasal Cannula 2.0 01/18/18 04:00 98.6 91 16 125/70 (88) 99 98.6 01/18/18 04:00 75 01/18/18 00:00 98.1 86 16 110/65 (80) 99 98.1 01/18/18 00:00 90 01/18/18 00:00 Nasal Cannula 2.0 General Appearance: no apparent distress, alert EENT: PERRL/EOMI, normal ENT inspection, TMs normal, pharynx normal Neck: non-tender, normal alignment, supple, normal inspection Rhythm: Afib Cardiovascular: normal peripheral pulses, normal rate, diastolic murmur, systolic murmur, gallop/S3, gallop/S4, arrhythmia Respiratory/Chest: chest wall non-tender, lungs clear, normal breath sounds, no respiratory distress Abdomen: normal bowel sounds, non tender, soft, no organomegaly, no mass Extremities: normal range of motion, non-tender, normal inspection Neurologic: o and m supervisor II-XII grossly normal, no motor/sensory deficits, alert, oriented x 3, responsive, normal mood/affect Intake and Output 01/17/18 01/18/18 18:59 06:59 Intake Total 600 ml 200 ml Output Total 1000 ml Balance 600 ml -800 ml Intake Oral 600 ml 200 ml Output Urine Total 1000 ml Laboratory Tests Test 01/18/18 03:52 Sodium Level 135 MMOL/L (136-145) L Potassium Level 3.9 MMOL/L (3.5-5.1) Chloride Level 102 MMOL/L (98-107) Carbon Dioxide Level 27 MMOL/L (21-32) Anion Gap 6 mmol/L (5-15) Blood Urea Nitrogen 25 mg/dL (7-18) H Creatinine 1.5 MG/DL (0.55-1.30) H Estimat Glomerular Filtration Rate mL/min (>60) Glucose Level 110 MG/DL (74-106) H Calcium Level 8.8 MG/DL (8.5-10.1) Luis Ayoub MD Jan 18, 2018:14
[2018-01-19 04:00] VITALS: BP 139/77
[2018-01-19 07:06] LABS: BASOPHILS % (AUTO) 0.7 % (0.0-2.0); EOSINOPHILS % (AUTO) 8.3 % (0.0-3.0); HEMATOCRIT 42.9 % (42.0-52.0); HEMOGLOBIN 14.7 G/DL (14.2-18.0); LYMPHOCYTES % (AUTO) 13.2 % (20.0-45.0); MEAN CORPUSCULAR VOLUME 86 FL (80-99); NEUTROPHILS % (AUTO) 65.7 % (45.0-75.0); PLATELET COUNT 174 K/UL (150-450); RED BLOOD COUNT 4.99 M/UL (4.70-6.10); RED CELL DISTRIBUTION WIDTH 11.7 % (11.6-14.8); WHITE BLOOD COUNT 8.2 K/UL (4.8-10.8)
[2018-01-19 07:13] LABS: ANION GAP 9 mmol/L (5-15); BLOOD UREA NITROGEN 28 mg/dL (7-18); CALCIUM 9.2 MG/DL (8.5-10.1); CARBON DIOXIDE 27 MMOL/L (21-32); CHLORIDE 100 MMOL/L (98-107); CREATININE 1.6 MG/DL (0.55-1.30); POTASSIUM 4.1 MMOL/L (3.5-5.1); SODIUM 136 MMOL/L (136-145)
[2018-01-19 08:00] VITALS: BP 141/84
[2018-01-19] MEDS: Amiodarone 200mg tab ORAL SCH (08:40)
--- NOTE | 2018-01-19 08:44 | Nephrology Progress Note ---
Assessment/Plan Assessment/Plan A/P 1) AFib with RVR- NSR - on Lopressor/ Xarelto/Amiodarone - Stress test noted - Echocardiogram EF 25% and Severe MR and Pulm HTN 2) CHF- aldactone. Monitor Cr 1.6 3) Left [place]- indeterminate- Await Urology clearance 4) HTN- lopressor and losartan 5) CKD 3B- Cr 1.6 - stable. - Dilated tubular structure that may be a dilated left ureter. Fullness of the left renal pelvis. F/U with Urology DC today with Home Health once cleared by Urology and cardiology Subjective Date patient seen: Jan 19, 2018 Time patient seen: 08:42 ROS Limited/Unobtainable: No Allergies: Coded Allergies: No Known Allergies (Unverified , 01/15/18) Subjective Patient feels much better in no distress Objective Last 24 Hour Vital Signs Date Time Temp Pulse Resp B/P (MAP) Pulse Ox O2 Delivery O2 Flow Rate FiO2 01/19/18 08:40 141/84 01/19/18 08:39 93 141/84 01/19/18 08:00 98.0 93 20 141/84 (103) 95 98.0 01/19/18 07:20 95 Room Air 21 01/19/18 07:20 90 20 Room Air 21 01/19/18 07:20 Room Air 01/19/18 04:00 98.0 81 20 139/77 (97) 96 98.0 01/19/18 04:00 73 01/18/18 23:30 79 01/18/18 21:00 Room Air 01/18/18 20:00 99.2 88 20 126/77 (93) 94 99.2 01/18/18 19:54 Nasal Cannula 2.0 28 01/18/18 19:54 88 20 Nasal Cannula 2.0 28 01/18/18 19:54 96 Nasal Cannula 2.0 28 01/18/18 19:20 86 01/18/18 16:00 97.5 89 19 123/70 (87) 96 97.5 01/18/18 16:00 Room Air 01/18/18 15:19 95 01/18/18 12:00 89 01/18/18 12:00 Room Air 01/18/18 11:58 97.5 80 20 117/73 (88) 96 97.5 01/18/18 09:23 120/68 01/18/18 09:00 86 120/68 01/18/18 08:59 97.7 86 20 120/68 (85) 95 97.7 01/18/18 08:45 Room Air Intake and Output 01/18/18 01/19/18 19:00 07:00 Intake Total 120 ml Balance 120 ml Intake Oral 120 ml # Voids 3 Laboratory Tests 01/19/18 06:30: White Blood Count 8.2, Red Blood Count 4.99, Hemoglobin 14.7, Hematocrit 42.9, Mean Corpuscular Volume 86, Mean Corpuscular Hemoglobin 29.4, Mean Corpuscular Hemoglobin Concent 34.2, Red Cell Distribution Width 11.7, Platelet Count 174, Mean Platelet Volume 9.7, Neutrophils (%) (Auto) 65.7, Lymphocytes (%) (Auto) 13.2L, Monocytes (%) (Auto) 12.0H, Eosinophils (%) (Auto) 8.3H, Basophils (%) ( Auto) 0.7, Sodium Level 136, Potassium Level 4.1, Chloride Level 100, Carbon Dioxide Level 27, Anion Gap 9, Blood Urea Nitrogen 28H, Creatinine 1.6H, Estimat Glomerular Filtration Rate , Glucose Level 112H, Calcium Level 9.2 Height (Feet): 5 Height (Inches): 5.00 Weight (Pounds): 115 General Appearance: WD/WN, no apparent distress EENT: normal ENT inspection Neck: normal alignment, supple Cardiovascular: normal rate, regular rhythm Respiratory/Chest: lungs clear, normal breath sounds Abdomen: non tender, soft Edema: no edema noted Arm (L), no edema noted Arm (R), no edema noted Leg (L), no edema noted Leg (R), no edema noted Pedal (L), no edema noted Pedal (R), no edema noted Generalized Matt Ibanez MD Jan 19, 2018 08:44
[2018-01-19] MEDS ORDERED: Spironolactone 25mg tab ORAL SCH (09:00)
[2018-01-19] MEDS ORDERED: Losartan 25mg tab ORAL SCH (09:00)
[2018-01-19] MEDS ORDERED: Metoprolol Succinate XL 100mg tab ORAL SCH (09:00)
[2018-01-19] MEDS ORDERED: Aspirin Baby 81mg ORAL SCH (09:00)
[2018-01-19 12:00] VITALS: BP 158/88
--- NOTE | 2018-01-19 14:01 | Diagnostic Imaging Report ---
Indication: Abdominal pain Technique: Continuous helical transaxial imaging of the abdomen and pelvis was obtained from the lung bases to the pubic symphysis. No intravenous contrast was administered. Coronal 2-D reformats were also obtained. Automatic Exposure Control was utilized. Total Dose length Product (DLP): 598.[address] Dose Index Volume (CTDIvol): 11.66 mGy Comparison: Ultrasound kidneys 01/16/2018 Findings: No evidence of a tubular structure hydronephrosis on the left kidney Trace bilateral pleural effusions demonstrated with minimal basilar atelectasis and other reticular markings suggestive of mild scarring. The gallbladder is hyperdense suggestive of underlying stones or sludge. There is a tiny hypodensity in the medial left kidney probably a small cyst. There is breathing motion limiting evaluation. Mild calcification of aorta demonstrated. No nephrolithiasis or hydronephrosis demonstrated. No free fluid or free air seen. The appendix not definitely seen but no secondary signs of appendicitis identified. There is a right dynamic hip screw. Minimal retrolisthesis and degenerative disc disease at L2-3 demonstrated. IMPRESSION: Trace bilateral pleural effusions Gallstones versus sludge Atherosclerotic disease Degenerative disc disease L2-3. Right dynamic hip screw for an old fracture. Tiny probable cyst in the left kidney The CT scanner at [facility] is accredited by the [employer] and the scans are performed using dose optimization techniques as appropriate to a performed exam including Automatic Exposure control.
--- NOTE | 2018-01-19 15:55 | Cardiology Report ---
APPROVED REPORT EXAM: Two-dimensional and M-mode echocardiogram with Doppler and color Doppler. INDICATION Chest Pain M-Mode DIMENSIONS IVSd1.3 (0.7-1.1cm)Left Atrium (MM)4.1 (1.6-4.0cm) LVDd5.4 (3.5-5.6cm)Aortic Root3.7 (2.0-3.7cm) PWd1.4 (0.7-1.1cm)Aortic Cusp Exc.1.9 (1.5-2.0cm) LVDs3.8 (2.5-4.0cm) PWs1.7 cm Normal left ventricular chamber size. Global left ventricular hypokinesis. Inferolateral wall akinesis. Left ventricular ejection fraction estimated to be 25 %. Mild left ventricular hypertrophy. No evidence of pericardial effusion. Left atrial size at upper limits of normal. Right cardiac chamber sizes are within normal limits. Focal aortic valve sclerosis with adequate cusp excursion. Mildly thickened mitral valve leaflets with normal excursion. Mild mitral annulus and aortic root calcification. Pulmonic valve not well visualized. Normal tricuspid valve structure. IVC dilated at 2.3 cm with physiological collapse, suggestive of increased RA pressure. A color flow and spectral Doppler study was performed and revealed: Mild aortic insufficiency. Severe mitral regurgitation. Mitral inflow indicates increased left atrial pressure, suggestive restrictive pattern (Grade III). Moderate tricuspid regurgitation. Tricuspid systolic velocities suggests peak right ventricular systolic pressure of 73 mmHg, consistent with severe pulmonary hypertension. Mild pulmonic regurgitation present.
[2018-01-19 16:00] VITALS: BP 122/69
[2018-01-19] MEDS ORDERED: Xarelto 15mg tab ORAL SCH (16:30)
--- NOTE | 2018-01-19 19:35 | Pulmonology Progress Note ---
Assessment/Plan Assessment/Plan IMPRESSION RAPID AFIB CARDIOMYOPATHY SHORTNESS OF BREATH PULMONARY EDEMA DOUBT PNEUMONIA MILD CONGESTION PLAN vitals improved keep negative Pulmonary well monitor imaging for change agree with management agree with dc planning pending cardiac clearance impression, plan, and exam edited and reviewed in detail care discussed with RN Subjective Allergies: Coded Allergies: No Known Allergies (Unverified , 01/15/18) Subjective appear comfortable no distress stress test reviewed alert and taking po Objective Last 24 Hour Vital Signs Date Time Temp Pulse Resp B/P (MAP) Pulse Ox O2 Delivery O2 Flow Rate FiO2 01/19/18 16:00 81 01/19/18 16:00 98.0 84 20 122/69 (86) 99 98.0 01/19/18 12:00 100 01/19/18 12:00 98.1 98 20 158/88 (111) 96 98.1 01/19/18 09:00 Room Air 01/19/18 08:40 141/84 01/19/18 08:39 93 141/84 01/19/18 08:00 98.0 93 20 141/84 (103) 95 98.0 01/19/18 08:00 76 01/19/18 07:20 95 Room Air 21 01/19/18 07:20 90 20 Room Air 21 01/19/18 07:20 Room Air 01/19/18 04:00 98.0 81 20 139/77 (97) 96 98.0 01/19/18 04:00 73 01/18/18 23:30 79 01/18/18 21:00 Room Air 01/18/18 20:00 99.2 88 20 126/77 (93) 94 99.2 01/18/18 19:54 Nasal Cannula 2.0 28 01/18/18 19:54 88 20 Nasal Cannula 2.0 28 01/18/18 19:54 96 Nasal Cannula 2.0 28 Intake and Output 01/18/18 01/19/18 19:00 07:00 Intake Total 120 ml Balance 120 ml Intake Oral 120 ml # Voids 3 Objective PHYSICAL EXAMINATION: NAD: alert and awake GENERAL: The patient is awake, alert, not otherwise in distress. HEENT: EOMI Carotid 2+ without murmur CARDIOVASCULAR: S1 and S2. rate controlled; no MRG; PULMONARY: Clear to auscultation bilaterally. No rales, rhonchi, or wheezes. ABDOMEN: Nondistended and nontender with good bowel sounds. no distention EXTREMITIES: No CCE NEURO: nonfocal overall and comfortable Laboratory Tests 01/19/18 06:30: White Blood Count 8.2, Red Blood Count 4.99, Hemoglobin 14.7, Hematocrit 42.9, Mean Corpuscular Volume 86, Mean Corpuscular Hemoglobin 29.4, Mean Corpuscular Hemoglobin Concent 34.2, Red Cell Distribution Width 11.7, Platelet Count 174, Mean Platelet Volume 9.7, Neutrophils (%) (Auto) 65.7, Lymphocytes (%) (Auto) 13.2L, Monocytes (%) (Auto) 12.0H, Eosinophils (%) (Auto) 8.3H, Basophils (%) ( Auto) 0.7, Sodium Level 136, Potassium Level 4.1, Chloride Level 100, Carbon Dioxide Level 27, Anion Gap 9, Blood Urea Nitrogen 28H, Creatinine 1.6H, Estimat Glomerular Filtration Rate , Glucose Level 112H, Calcium Level 9.2 Current Medications Medications (Trade) Dose Ordered Sig/Tahmina Route PRN Reason Start Time Stop Time Status Last Admin Dose Admin Acetaminophen (Tylenol) 650 mg Q4H PRN ORAL Mild Pain (Pain Scale 1-3) 01/18/18 18:09 02/14/18 18:08 Albuterol Sulfate (Proventil) 2.5 mg Q4H PRN HHN congestion 01/18/18 18:09 01/21/18 18:08 Amiodarone HCl (Cordarone) 400 mg EVERY 12 HOURS ORAL 01/18/18 21:00 02/16/18 13:17 01/19/18 08:40 Aspirin (ASA) 81 mg DAILY ORAL 01/19/18 09:00 02/15/18 08:59 01/19/18 08:39 Dextrose (Dextrose 50%) 25 ml Q30M PRN IV Hypoglycemia 01/18/18 18:09 02/14/18 18:08 Dextrose (Dextrose 50%) 50 ml Q30M PRN IV Hypoglycemia 01/18/18 18:10 02/14/18 18:09 Famotidine (Pepcid) 40 mg DAILY ORAL 01/19/18 09:00 02/15/18 08:59 01/19/18 08:39 Furosemide (Lasix) 20 mg EVERY 12 HOURS ORAL 01/18/18 21:00 02/16/18 20:59 01/19/18 08:40 Losartan Potassium (Cozaar) 25 mg DAILY ORAL 01/19/18 09:00 02/15/18 08:59 01/19/18 08:40 Metoprolol Succinate (Toprol XL) 100 mg DAILY ORAL 01/19/18 09:00 02/15/18 08:59 01/19/18 08:39 Ondansetron HCl (Zofran) 4 mg Q6H PRN IVP Nausea & Vomiting 01/18/18 18:10 02/14/18 18:09 Rivaroxaban (Xarelto) 15 mg QPM ORAL 01/19/18 16:30 02/15/18 16:29 01/19/18 15:59 Spironolactone (Aldactone) 25 mg DAILY ORAL 01/19/18 09:00 02/17/18 08:59 01/19/18 08:40 Giovanny Jean MD Jan 19, 2018 19:35
--- NOTE | 2018-01-19 21:56 | Cardiology Progress Note ---
Assessment/Plan Status: stable Assessment/Plan Assessment: HTN HLD BPH AFIB JOSLYN NSTEMI Plan AFIB: Lopressor 100 BID Xarelto 20 mg anticoagulation Continue amiodarone 400 BID NSTEMI: Demand ischemia? no chest pain, no EKG with ischemia, troponin flat Continue to trend until peak Stress test negative for ischemia, hx of infarct Echocardiogram LVEF 25% with severe MR and Grade III filling pressures SOB: Resolved HTN: Continue lopressor and Losartan Add aldactone Systolic CHF: Ischemia evaluation Thursday Diuresis: Aldacone + lasix to reduce filling pressures and pulmonary pressures Check echo in three months Arrange life vest upon discharge May need ICD JOSLYN: Fluids Renal electrolytes Ultrasound prognosis guarded Subjective Cardiovascular: Reports: no symptoms Respiratory: Reports: no symptoms Gastrointestinal/Abdominal: Reports: no symptoms Genitourinary: Reports: no symptoms Subjective Transferred to floor, sons at bedside, on room air. Rates 90s, stress test negative for ischemia but hx of infarction. Currently no chest pain, tolerating PO Life vest delivered today. Objective Last 24 Hour Vital Signs Date Time Temp Pulse Resp B/P (MAP) Pulse Ox O2 Delivery O2 Flow Rate FiO2 01/19/18 16:00 81 01/19/18 16:00 98.0 84 20 122/69 (86) 99 98.0 01/19/18 12:00 100 01/19/18 12:00 98.1 98 20 158/88 (111) 96 98.1 01/19/18 09:00 Room Air 01/19/18 08:40 141/84 01/19/18 08:39 93 141/84 01/19/18 08:00 98.0 93 20 141/84 (103) 95 98.0 01/19/18 08:00 76 01/19/18 07:20 95 Room Air 21 01/19/18 07:20 90 20 Room Air 21 01/19/18 07:20 Room Air 01/19/18 04:00 98.0 81 20 139/77 (97) 96 98.0 01/19/18 04:00 73 01/18/18 23:30 79 General Appearance: no apparent distress, alert EENT: PERRL/EOMI, normal ENT inspection Neck: non-tender, normal alignment, supple, normal inspection, no JVD Rhythm: Afib Cardiovascular: normal peripheral pulses, normal rate, regularly irregular, systolic murmur, gallop/S3, gallop/S4, arrhythmia Respiratory/Chest: chest wall non-tender, lungs clear, normal breath sounds, no respiratory distress Abdomen: normal bowel sounds, non tender, soft Extremities: normal range of motion Neurologic: ice skater II-XII grossly normal, no motor/sensory deficits Intake and Output 01/18/18 01/19/18 19:00 07:00 Intake Total 120 ml Balance 120 ml Intake Oral 120 ml # Voids 3 Laboratory Tests Test 01/19/18 06:30 White Blood Count 8.2 K/UL (4.8-10.8) Red Blood Count 4.99 M/UL (4.70-6.10) Hemoglobin 14.7 G/DL (14.2-18.0) Hematocrit 42.9 % (42.0-52.0) Mean Corpuscular Volume 86 FL (80-99) Mean Corpuscular Hemoglobin 29.4 PG (27.0-31.0) Mean Corpuscular Hemoglobin Concent 34.2 G/DL (32.0-36.0) Red Cell Distribution Width 11.7 % (11.6-14.8) Platelet Count 174 K/UL (150-450) Mean Platelet Volume 9.7 FL (6.5-10.1) Neutrophils (%) (Auto) 65.7 % (45.0-75.0) Lymphocytes (%) (Auto) 13.2 % (20.0-45.0) L Monocytes (%) (Auto) 12.0 % (1.0-10.0) H Eosinophils (%) (Auto) 8.3 % (0.0-3.0) H Basophils (%) (Auto) 0.7 % (0.0-2.0) Sodium Level 136 MMOL/L (136-145) Potassium Level 4.1 MMOL/L (3.5-5.1) Chloride Level 100 MMOL/L (98-107) Carbon Dioxide Level 27 MMOL/L (21-32) Anion Gap 9 mmol/L (5-15) Blood Urea Nitrogen 28 mg/dL (7-18) H Creatinine 1.6 MG/DL (0.55-1.30) H Estimat Glomerular Filtration Rate mL/min (>60) Glucose Level 112 MG/DL (74-106) H Calcium Level 9.2 MG/DL (8.5-10.1) Luis Ayoub MD Jan 19, 2018 21:56
--- NOTE | 2018-01-21 11:47 | Discharge Summary ---
Discharge Summary Discharge Summary _ DATE OF ADMISSION: 01/15/2018 DATE OF DISCHARGE:01/19/2018 REASON FOR ADMISSION: 77 years old male with past medical history of hypertension, BPH, presented to emergency room with complaints of shortness of breath and not feeling well for the last three days. Patient was found to be in atrial fibrillation with rapid ventricular response, new onset. Laboratory workup revealed elevated creatinine 1.4. Elevated troponin-0.204. Pro BNP 6276. Patient denied chest pain ,nausea, vomiting, diarrhea. Patient admitted with diagnoses atrial fibrillation with rapid ventricular response, new onset; shortness of breath; hypertension; acute versus chronic kidney disease. CONSULTANTS: bias machine operator Dr. Ayoub pulmonary [facility] COURSE: Patient admitted to telemetry floor. Cardiology and pulmonology closely followed. Heart rate was managed with onto coagulation started patient started on on spot diuretic therapy to assist with shortness of breath Blood pressure was managed with beta fox and ARB . Sugar Trucker closely follow. Heart rate was controlled with beta fox and amiodarone. Patient started on anticoagulation with Xarelto. Echocardiogram revealed ejection fraction 25% with global left ventricular hypokinesis and inferior lateral wall akinesis. Severe mitral regurgitation and grade 3 diastolic dysfunction. Right ventricular systolic pressure of 73 , consistent with severe pulmonary hypertension. Diuresis provided with Lasix and Aldactone to reduce filling and pulmonary pressures. Volumes and cardiorenal parameters were closely monitored, Stress test revealed no definite evidence of myocardial ischemia. It demonstrated large fixed perfusion defect , consistent with myocardial infarction involving a large area of the left ventricular apex, the lateral wall , the inferior wall. Ejection fraction estimated to be 46%. Serial troponin were trended , levels flat with mild elevation. Probably demand ischemia or leaking troponin given chronic kidney disease, Patient denied any chest pain, no ischemia on EKG. Shortness of breath resolved with diuresis. Anti-failure regimen provided with beta fox, ARB and diuretics, Sugar Trucker recommended to check ECHO in 3 months. Patient may need ICD. Life Vest arranged prior to discharge. Supplemental oxygen and pulmonary toilet provided as needed. Patient initially with evidence of pulmonary edema on CXR which improved with diuresis as demonstrated on CT scan. Renal parameters and electrolytes were closely monitored,electrolytes corrected as needed, and nephrotoxins were avoided. Renal ultrasound revealed punctate hyperdensity in the left kidney, likely nonobstructive stone. Fullness of the left renal pelvis. CT of the abdomen and pelvis revealed gallstones versus sludge, tiny cyst in the left kidney. trace bilateral pleural effusion. Outpatient follow up with urologist recommended, Patient clinically stabilized. Medication regimen optimized. Patient was counseled on compliance with medication regimen. Patient was stable for discharge home with home health services FINAL DIAGNOSES: Atrial fibrillation with rapid ventricular response, new onset Systolic congestive heart failure Severe cardiomyopathy with ejection fraction 25% Severe mitral regurgitation Pulmonary edema Chronic kidney disease 3B Left hydronephrosis Elevated troponin . possible demand ischemia versus leaking due to renal failure Hypertension Hyperlipidemia BPH Left hydronephrosis Severe pulmonary HTN ( per ECHO) DISCHARGE MEDICATIONS: See Medication Reconciliation list. DISCHARGE INSTRUCTIONS: Patient was discharged home with home health services. Follow up with primary care provider in one week. I have been assigned to dictate discharge summary for this account. I was not involved in the patient's management. Jyotsna Jackman NP Jan 21, 2018 11:47
== END 2018-01-19 20:00 | DRG 309 ==
LOC: EDBD 17:33 → EMR 17:50 → EDBD 17:50 → 2W 19:05 → EDBEDREQSVC 19:48 → EDBEDREQ 20:26 → 2E 01-18 17:00
DX: I48.91 Unspecified atrial fibrillation (principal); I13.0 Hypertensive heart and chronic kidney disease with heart failure and stage 1 through stage 4 chronic kidney disease, or unspecified chronic kidney disease; N17.9 Acute kidney failure, unspecified; I50.20 Unspecified systolic (congestive) heart failure; N13.30 Unspecified hydronephrosis; I24.8 Other forms of acute ischemic heart disease; I42.9 Cardiomyopathy, unspecified; N40.0 Benign prostatic hyperplasia without lower urinary tract symptoms; I10 Essential (primary) hypertension; I34.0 Nonrheumatic mitral (valve) insufficiency; N18.3 Chronic kidney disease, stage 3 (moderate); R74.8 Abnormal levels of other serum enzymes; E78.5 Hyperlipidemia, unspecified; I27.20 Pulmonary hypertension, unspecified
CPT/HCPCS: 36415; 71045; 74176; 76770; 78452; 80048; 80053; 81003; 82550; 82553; 83880; 84484; 85025; 85379; 85610; 85730; 87040; 93005; 93017; 93306; 94664; 94760; 96374; 99285; J2785; J8499